=== PATIENT | female | born 1975 | race African-American/Black ===

== ENCOUNTER 2020-01-17 11:33 | Emergency (ER) | payer OTHER, SELFPAY ==
--- NOTE | ~2020-01-17 | CT_ITS ---
EXAMINATION: CTA brain carotid DATE: 01/17/2020 12:27 INDICATION: Dizziness. TECHNIQUE: Computed tomographic angiography (CTA) of the head was performed without and with 100 mL O mnipaque-350 intravenous contrast. CTA of the neck was performed with intravenous contrast. Automated exposure control and iterative reconstruction technique were employed. The dose-length product was 1 582.35 mGy-cm. Maximum intensity projection and volume rendered 3D-reconstructions were created by tiffanie nina technologist on a separate workstation. COMPARISON: None. FINDINGS: HEAD CTA: There is no intracranial hemorrhage, acute infarction, or abnormal intracranial mass lesion . The ventricles are normal in size. The orbits are normal. The paranasal sinuses are clear. The mast oid air cells are normal. The vertebral arteries are codominant. There is no significant stenosis of basilar artery or the posterior cerebral arteries. The posterior communicating arteries are normal. T here is no significant stenosis of the intracranial internal carotid arteries or anterior or middle c erebral arteries. Anterior communicating artery is normal. There is no aneurysm. NECK CTA: There are nodules in the thyroid measuring up to 10 mm, likely not clinically significant. There are no pathologically enlarged lymph nodes. There is no visible plaque in the proximal internal carotid arteries. There is 0% stenosis of the proximal right internal carotid artery relative to nor mal distal artery lumen diameter (NASCET criteria). There is 0% stenosis of the proximal left interna l carotid artery relative to normal distal artery lumen diameter. There is no significant stenosis of the vertebral arteries. There is mild cervical spondylosis. IMPRESSION: 1. Normal brain. No aneurysm or significant intracranial internal stenosis. 2. Normal neck arteries. Reviewed, dictated and finalized at location A. MIXER
[2020-01-17 11:35] VITALS: BP 119/84; PULSE 77; RESP 16; TEMP 36.2; O2SAT 100
[2020-01-17 11:45] VITALS: BP 121/86; PULSE 69; RESP 16; O2SAT 98
--- NOTE | 2020-01-17 11:45 | ECG_ITS ---
Measurements Intervals Foster Rate: 69 P: 67 HI: 164 QRS: 20 QRSD: 85 T: 28 QT: 400 QTc: 430 Interpretive Statements SINUS RHYTHM NONSPECIFIC T-WAVE ABNORMALITY- DIFFUSE LEADS BORDERLINE ECG Electronically Signed On 01-17-2020 12:39:53 [employer] by Chris Ochoa D.O.
--- NOTE | 2020-01-17 11:55 | ED.DIZZY ---
HPI - Dizziness General Chief Complaint: Dizziness Stated Complaint: dizzy Time Seen by Provider: 01/17/20 11:53 Source: patient and RN notes reviewed Mode of arrival: other Limitations: no limitations History of Present Illness HPI Narrative: Pt is a 45 y/o female who presents to the ED with c/o moderate dizziness that began at 6:20 AM. Pt describes her dizziness as if the room is spinning. Pt states her sx are alleviated whenever she lays down, but her sx are aggravated when she turns her head. Pt reports neck pain, nausea, and diarrhea, but denies vomiting, ABD pain, CP, SOB, weakness, numbness, and difficulty talking. MD elicited complaint: dizziness Onset (ago): hour(s) (5) Timing: constant Severity: moderate Description: room spinning Exacerbating factors: movement/ambulation Relieving factors: lying down Associated symptoms: nausea and other (diarrhea, neck pain) Related Data Allergies Allergy/AdvReac Type Severity Reaction Status Date / Time No Known Allergies Allergy Unverified 07/06/19 07:38 Review of Systems Review of Systems: All systems reviewed & are unremarkable except as noted in HPI and below Cardiovascular: Cardiovascular: Denies chest pain Respiratory: Respiratory: Denies dyspnea Gastrointestinal: Gastrointestinal: Denies abdominal pain, Reports diarrhea, Reports nausea and Denies vomiting Musculoskeletal: Musculoskeletal: Reports neck pain Neurologic: Reports dizziness, Denies numbness, Denies weakness and Denies other (difficulty speaking) [facility] Past Medical History Medical History (Updated 01/18/20 @ 00:00 by Abel Pardo) Cervical dysplasia Depression Surgical History Surgical History (Updated 01/17/20 @ 12:04 by Chen Castellanos) History of tubal ligation Exam Const: General: no acute distress and well developed Orientation/consciousness: oriented to person, oriented to place, oriented to time and patient oriented x3 HENMT: Head: normocephalic Ears: external ears normal General nose exam: Normal external nose present Eyes: General: appearance normal, both eyes and all related structures Conjunctivae: conjunctivae normal Neck: Neck: normal visual inspection and full ROM Chest: Chest palpation & inspection: normal inspection of the chest and no tenderness Resp: Effort & Inspection: normal respiratory effort Auscultation: clear to auscultation bilaterally Cardio: Rate: regular rate Rhythm: regular rhythm GI: GI Palp: No abdominal tenderness and Yes Soft to palpation Skin: General skin exam: normal color and turgor normal Neuro: General: oriented to person, oriented to place, oriented to time and patient oriented x3 Cranial nerves: Yes CN's II-XII intact bilaterally Cognition (Neuro): normal cognition Speech: normal speech Motor exam (neuro): 5/5 motor strength present throughout Sensory Exam: normal sensation Coordination: [id number] test normal and [id number] test normal Extrem: General: normal to inspection, full ROM and no pedal edema Psych: Appearance: grossly normal Mental Status: mental status grossly normal Affect: normal affect Course Reevaluation(s) Reevaluation #1: Pt states dizziness has resolved. Plan on d/c pt home. Date: 01/17/20 Time: 13:17 Vital Signs Vital signs: Vital Signs Temperature 36.2 C L 01/17/20 11:35 Pulse Rate 77 01/17/20 11:35 Respiratory Rate 16 01/17/20 11:35 Blood Pressure 119/84 01/17/20 11:35 Pulse Oximetry 100 01/17/20 11:35 Temperature 36.2 C L 01/17/20 11:35 Pulse Rate 64 01/17/20 13:32 Respiratory Rate 17 01/17/20 13:32 Blood Pressure 109/72 01/17/20 13:32 Pulse Oximetry 100 01/17/20 13:32 MDM - Dizziness Lab Data Result diagrams: 01/17/20 12:06 01/17/20 12:15 Labs: Lab Results 01/17/20 01/17/20 01/17/20 Range/Units 12:06 12:06 12:15 WBC 4.8 (4.5-10.0) K/mm3 RBC 4.30 (4.2-5.4) M/mm3 Hgb 10.4 L (12.0-15.0) g/
[2020-01-17 12:11] LABS: Basophils Percent Auto 0.4 % (0.2-1.2); Eosinophils Percent Auto 0.8 % (0-4.4); Hematocrit 33.8 % (37.0-47.0); Hemoglobin 10.4 g/dL (12.0-15.0); Immature Granulocyte Absolute 0.01 K/mm3 (0.00-0.031); Immature Granulocyte Percent A 0.2 % (0-0.5); Lymphocytes Absolute Auto 1.71 K/mm3 (0.9-3.2); Lymphocytes Percent Auto 35.8 % (18.3-44.2); Mean Corpuscular HGB Conc 30.8 g/dl (32-36); Mean Corpuscular Hemoglobin 24.2 pg (26-34); Mean Corpuscular Volume 78.6 fl (80-100); Monocytes Absolute Auto 0.3 K/mm3 (0.1-0.6); Monocytes Percent Auto 6.9 % (2.6-8.5); Neutrophils Absolute Auto 2.7 K/mm3 (1.3-6.7); Neutrophils Percent Auto 55.9 % (45.5-73.1); Platelet Count Result 318 k/mm3 (150-375); Red Cell Distribution Width 15.2 % (11.5-14.5); White Blood Count 4.8 K/mm3 (4.5-10.0)
[2020-01-17 12:17] LABS: Blood Urea Nitrogen 12 mg/dL (8-26); Estimated CRCL calculation 82 ml/min; Estimated Glomerular Filt Rate > 60
[2020-01-17 12:32] LABS: Blood Urea Nitrogen 12 mg/dL (7-17); Calcium 9.2 mg/dL (8.4-10.2); Carbon Dioxide 27 mmol/L (22-30); Chloride 103 mmol/L (98-107); Estimated CRCL calculation 93 ml/min; Estimated Glomerular Filt Rate > 60; Glucose 106 mg/dL (65-105); Potassium 4.2 mmol/L (3.4-5.0); Sodium 137 mmol/L (137-145)
[2020-01-17] MEDS: SODIUM CHLORIDE 0.9% IV 1,000 ML 999 ML IV CONT (12:36)
[2020-01-17] MEDS: ONDANSETRON INJ 4 MG/2 ML VIAL IV PUSH (12:36)
[2020-01-17 12:37] VITALS: BP 108/73; BP 119/71; BP 126/73; PULSE 67; PULSE 69; PULSE 73
[2020-01-17 12:38] VITALS: BP 112/73; PULSE 71; RESP 13; O2SAT 100
[2020-01-17] MEDS: MECLIZINE HCL 25 MG TABLET PO (12:43)
[2020-01-17 13:32] VITALS: BP 109/72; PULSE 64; RESP 17; O2SAT 100
--- NOTE | 2020-01-21 18:24 | PC.NURSE ---
LATE ENTRY This note is being entered to document information to the patient's record. The following information was omitted on 01/17/2020, by Candelaria Eid RN. NS stopped at 1259 by this RN
== END 2020-01-17 13:33 | disposition home or self-care (01) ==
PROVIDERS: Emergency Medicine; Emergency Provider Emergency Medicine; PCP Emergency Medicine
DX: R42 Dizziness and giddiness (principal); R94.31 Abnormal electrocardiogram [ECG] [EKG]
CPT/HCPCS: 36415; 70496; 70498; 80048; 85025; 93005; 96374; 99284; A9270; J2405; J7030; Q9967

== ENCOUNTER 2020-01-30 10:41 | Outpatient (CLI) | payer OTHER, SELFPAY ==
--- NOTE | ~2020-01-30 | US_ITS ---
US thyroid INDICATION: Thyroid nodule TECHNIQUE: Real-time sonographic images of the thyroid gland were obtained. COMPARISON: No prior studies for comparison. FINDINGS: The right thyroid lobe measures 5.5 x 2.2 x 2.1 cm. The left thyroid lobe measures 4.9 x 2 .1 x 2.3 cm. There is heterogeneous thyroid echotexture. There are multiple bilateral thyroid masses in both lobes. In the right lobe there is a solid oval hypoechoic solid mass which is wider than tall with slightly irregular margins and no definite internal calcifications. This mass measures 1.5 x 0. 9 x 0.8 cm. Largest in the left lobe measures 1.6 x 1.4 x 1.3 cm this mass is mixed solid and cystic, predominantly hyperechoic with irregular margins. IMPRESSION: 1. Abnormal bilateral thyroid masses which are both category TR4. Ultrasound-guided biopsy recommend ed for each of these. Reviewed, dictated and finalized at location B. EOTYPER HELPER IMPRESSION: 1. Abnormal bilateral thyroid masses which are both category TR4. Ultrasound-g uided biopsy recommended for each of these.
== END 2020-01-30 10:42 | disposition home or self-care (01) ==
PROVIDERS: PCP Emergency Medicine; Visit Provider Emergency Medicine
DX: E04.1 Nontoxic single thyroid nodule (principal)
CPT/HCPCS: 76536

== ENCOUNTER 2022-05-20 12:31 | Emergency (ER) | payer OTHER, SELFPAY ==
--- NOTE | ~2022-05-20 | XR_ITS ---
EXAMINATION: XR lumbar spine 2-3V DATE: 05/20/2022 13:48 INDICATION: Low back pain TECHNIQUE: Anteroposterior and lateral views of the lumbar spine, and cone-down lateral view of the l umbosacral junction were obtained. COMPARISON: CT, 11/15/2011 FINDINGS: Bone alignment is normal. There is no fracture. There is mild loss of intervertebral disc s pace height at L3-4 and L5-S1. The vertebral body heights are maintained. There is mild facet osteoar thritis of the lower lumbar spine. Small degenerative osteophytes project from the anterior endplates of multiple vertebral bodies. The bowel gas pattern is normal. IMPRESSION: 1. Mild lumbar spondylosis without acute findings. Reviewed, dictated and finalized at location F.
[2022-05-20 13:07] VITALS: BP 124/76; PULSE 82; RESP 18; TEMP 36.2; O2SAT 100
[2022-05-20] MEDS: diazePAM (*CRX) 2 MG TABLET PO (13:49)
[2022-05-20] MEDS: KETOROLAC (*BKC) 60 MG/2 ML VIAL IM (13:49)
[2022-05-20 14:03] LABS: Add Urine Microscopic? YES; Appearance Urine Clear (Clear); Bilirubin Urine 1+ (Negative); Blood Urine Negative (Negative); Color Urine Yellow (Yellow); Glucose Urine UA Negative (Negative); Ketones Urine Trace mg/dL (Negative); Leukocyte Esterase Ur Negative LEU/UL (Negative); Nitrate Urine Negative (Negative); Protein Urine Trace mg/dL (Negative); Specific Grav Ur >= 1.030 (1.001-1.035); pH Urine 5.5 (5.0-9.0)
[2022-05-20 14:08] LABS: Bacteria Urine Trace /hpf; Mucus Urine Few /lpf; RBC Urine 0-2 /hpf (0-2); Squamous Epithelial Cell Urine Occasional /hpf (Few); WBC Urine 0-3 /hpf
--- NOTE | 2022-05-20 15:37 | ED.BACK ---
HPI - Back Pain/Injury General Chief Complaint: Back Pain/Injury Stated Complaint: back pain Time Seen by Provider: 05/20/22 13:23 History of Present Illness HPI Narrative: Patient is a 47-year-old female who presents ER with low back pain. Right-sided. Worsening over the last 2 days. No improvement with naproxen. No fevers or chills or sweats. No known trauma. She did not fall and she has not been doing any heavy lifting. No history of chronic back discomfort. She reports the pain occasionally goes down her right leg. No saddle anesthesia or difficulty with urination/defecation. No focal weakness of the lower extremity. Related Data Allergies Allergy/AdvReac Type Severity Reaction Status Date / Time No Known Allergies Allergy Verified 05/20/22 13:21 Review of Systems Review of Systems: All systems reviewed & are unremarkable except as noted in HPI and below Constitutional: Constitutional: Denies chills, Denies fatigue and Denies fever(s) Gastrointestinal: Gastrointestinal: Denies abdominal pain, Denies nausea and Denies vomiting Genitourinary: Genitourinary: Denies nocturia, Denies dysuria and Denies flank pain Musculoskeletal: Musculoskeletal: Reports back pain, Denies arthralgias and Denies joint swelling PMFSH Past Medical History Medical History (Updated 05/20/22 @ 15:38 by Kemar Patel MD) Cervical dysplasia Depression Surgical History Surgical History (Updated 01/17/20 @ 12:04 by Chen Castellanos) History of tubal ligation Exam Narrative: GENERAL: Well-appearing, well-nourished, and in no acute distress. HEAD: Normocephalic, atraumatic. CHEST: Clear to auscultation. No respiratory distress. HEART: Regular rate and rhythm. Normal peripheral pulses. ABDOMEN: Soft, nontender, nondistended. Back: Mild low midline tenderness but significantly increased tenderness to the right paraspinal musculature in the lumbar region. Muscles tight and spasm. EXTREMITIES: Normal range of motion. No edema. SKIN: Warm, dry, no rash. NEURO: Alert and oriented x3. PSYCH: Normal mood and affect. Course Course Emergency Course: Patient feels improved with Toradol and Valium. Discussed conservative outpatient treatment and patient verbalized understanding. Vital Signs Vital signs: Vital Signs Temperature 97.2 F L 05/20/22 13:07 Pulse Rate 82 06/23/22 13:07 Respiratory Rate 18 05/20/22 13:07 Blood Pressure 124/76 05/20/22 13:07 Pulse Oximetry 100 05/20/22 13:07 Oxygen Delivery Room Air 05/20/22 13:07 Temperature 97.2 F L 05/20/22 13:07 Pulse Rate 82 05/20/22 13:07 Respiratory Rate 18 05/20/22 13:07 Blood Pressure 124/76 05/20/22 13:07 Pulse Oximetry 100 05/20/22 13:07 Oxygen Delivery Room Air 05/20/22 13:07 MDM - Back Pain/Injury Lab Data Labs: Lab Results 05/20/22 Range/Units 13:56 Urine Color Yellow (Yellow) Urine Appearance Clear (Clear) Urine pH 5.5 (5.0-9.0) Ur Specific [place] >= 1.030 (1.001-1.035) Urine Protein Trace (Negative) mg/dL Urine Glucose (UA) Negative (Negative) mg/dL Urine Ketones Trace (Negative) mg/dL Ur Blood (Man) Negative (Negative) Urine Nitrate Negative (Negative) Urine Bilirubin 1+ H (Negative) Urine Urobilinogen 1.0 (<2.0) mg/dL Leukocyte Esterase Rfl Negative (Negative) RADHA/UL Urine RBC 0-2 (0-2) /hpf Urine WBC 0-3 /hpf Ur Squamous Epith Cells Occasional (Few) /hpf Urine Bacteria Trace /hpf Urine Mucus Few H /lpf Imaging Data Radiologist's impression: ITS Impressions Lumbar Spine X-Ray 05/20/22 13:53 IMPRESSION: 1. Mild lumbar spondylosis without acute findings. Discharge Plan Discharge Clinical Impression: Sciatica Patient Disposition: Home, Self-Care Condition: Stable Instructions: Sciatica (ED) Additional Instructions: Return to the ER if you have increased pain in your back, you develop lower extremity we
[2022-05-20 15:56] VITALS: BP 107/72; PULSE 73; RESP 16; TEMP 36.6; O2SAT 100
== END 2022-05-20 15:56 | disposition home or self-care (01) ==
PROVIDERS: Emergency Provider Emergency Medicine; PCP Emergency Medicine
DX: M54.41 Lumbago with sciatica, right side (principal); M47.816 Spondylosis without myelopathy or radiculopathy, lumbar region
CPT/HCPCS: 72100; 81001; 96372; 99283; A9270; J1885

== ENCOUNTER 2022-09-19 08:22 | Emergency (ER) | payer OTHER, SELFPAY ==
[2022-09-19] VITALS (7 sets, daily range): BP systolic 117–133; BP diastolic 73–92; PULSE 74–100; RESP 16–18; TEMP 36.6; O2SAT 100
--- NOTE | ~2022-09-19 | CT_ITS ---
EXAMINATION: CTA brain carotid DATE: 09/19/2022 15:30 INDICATION: Headache, family history of aneurysm TECHNIQUE: Computed tomographic angiography (CTA) of the head was performed without and with 100 mL O mnipaque-350 intravenous contrast. CTA of the neck was performed with intravenous contrast. The dose- length product was 1702.06 mGy-cm. Maximum intensity projection and volume rendered 3D-reconstruction s were created by the technologist on a separate workstation. Automated exposure control and iterativ e reconstruction technique were employed. COMPARISON: 01/17/2020 FINDINGS: HEAD CTA: There is no intracranial hemorrhage, acute infarction, or abnormal mass lesion. The ventric les are normal. There is no abnormal mass effect or midline shift. The leonard-white matter differentiat ion is normal. The basal cisterns are patent. The orbits are normal. There is mild mucosal thickening of the paranasal sinuses. There is no significant stenosis of the basilar artery or posterior cerebral arteries. There is no si gnificant stenosis of the intracranial internal carotid arteries or the anterior or middle cerebral a rteries. The anterior communicating artery and posterior communicating arteries are normal. There is no aneurysm. NECK CTA: Thyroid nodules are again noted which measure up to 10 mm. The submandibular and parotid gl ands are symmetric. There is no lymphadenopathy. There are no masses identified. The airway is unrema rkable. There are no osseous abnormalities. The superior mediastinum is unremarkable. There is 0% stenosis of the proximal right internal carotid artery relative to normal distal artery l umen diameter (NASCET criteria). There is 0% stenosis of the proximal left internal carotid artery re lative to normal distal artery lumen diameter. IMPRESSION: 1. No acute intracranial abnormality. Normal head CTA. 2. 0% stenosis of the proximal right internal carotid artery relative to normal distal artery lumen d iameter (NASCET criteria). 3. 0% stenosis of the proximal left internal carotid artery relative to normal distal artery lumen di ameter. Reviewed, dictated and finalized at location F. IMPRESSION: 1. No acute intracranial abnormality. Normal head CTA. 2. 0% stenosis of the proximal right internal carotid artery relative to normal distal artery lumen diameter (NASCET criteria). 3. 0% stenosis of the proximal left internal carotid artery relative to normal distal artery lumen diameter.
--- NOTE | 2022-09-19 12:56 | ED.URI ---
HPI - URI/Sore Throat General Chief Complaint: Upper Respiratory Infection Stated Complaint: URI, ARZOLA, UTI? Time Seen by Provider: 09/19/22 12:13 History of Present Illness HPI Narrative: Patient states the last few days she has been dealing with congestion, nausea, body aches, and a feeling of a pressure in her head and behind her eyes also endorsing some chills and burning with urination that started 2 days ago. No focal numbness or weakness anywhere, she is worried about having an aneurysm Related Data Allergies Allergy/AdvReac Type Severity Reaction Status Date / Time No Known Allergies Allergy Verified 09/19/22 08:39 Review of Systems Review of Systems: CONST: Chills HEENT: Congestion C/V: No chest pain RESP: No cough GI: Nausea : Dysuria. M/S: Body aches SKIN: No rash. NEURO: Headache without any focal numbness or weakness PSYCH: [No depression] PMFSH Past Medical History Medical History Cervical dysplasia Depression Surgical History Surgical History History of tubal ligation Exam Narrative: EXAMINATION OF ORGAN SYSTEMS/BODY AREAS: Constitutional: Vital signs per nursing GENERAL:[No acute distress, non-toxic appearing.] HEAD: Normal with no signs of head trauma. EYES: EOMI, conjunctiva normal, PERRL ENT: Hearing grossly intact, nasal congestion, normal voice LUNGS: Nonlabored breathing. HEART: [Regular rate and rhythm] ABD: [Soft], [nontender to palpation] EXT: Normal range of motion SKIN: [No rashes or lesions.] NEURO: [Alert and oriented x 3. No gross focal sensory or strength deficits. CN 2-12 intact. Symmetric face] PSYCH: Normal affect Course Vital Signs Vital signs: Vital Signs Temperature 97.9 F 09/19/22 08:30 Pulse Rate 100 09/19/22 08:30 Respiratory Rate 18 09/19/22 08:30 Blood Pressure 133/73 09/19/22 08:30 Pulse Oximetry 100 09/19/22 08:30 Oxygen Delivery Room Air 09/19/22 08:30 Temperature 97.9 F 09/19/22 08:30 Pulse Rate 78 09/19/22 14:46 Respiratory Rate 16 09/19/22 14:46 Blood Pressure 117/85 09/19/22 14:46 Pulse Oximetry 100 09/19/22 14:46 Oxygen Delivery Room Air 09/19/22 08:36 MDM - URI/Sore Throat MDM Narrative Medical decision making narrative: 47-year-old female presents to the emergency department for headache and dysuria. Patient is hemodynamically stable. No focal neurological or cranial nerve deficits on exam. No meningeal signs. The headache was gradual in onset, it is not exertional and does not appear consistent with subarachnoid hemorrhage or intracranial bleeding. No trauma. Patient is given headache cocktail including Reglan, Benadryl, Toradol. On reevaluation, the patient feels significantly better but still has a mild headache, and she would like to be checked to make sure she does not have an aneurysm as she has a family history of this, I did therefore obtain imaging which is negative. Labs are notable for UTI, which she is treated with antibiotics here and a prescription provided to go home. No neurological deficits. Patient is comfortable going home for outpatient follow-up with primary care physician and provided with strict return precautions, especially for worsening headaches, neck pain/stiffness, fever or weakness, numbness/tingling or persistent vomiting. I suspect most likely symptoms are from viral illness. Pulse oximetry interpretation: Not hypoxic. DISPOSITION: Discharged home in stable condition. Lab Data Result diagrams: 09/19/22 12:59 09/19/22 12:59 Labs: Lab Results 09/19/22 09/19/22 09/19/22 Range/Units 12:59 12:59 12:59 WBC 7.3 (4.5-10.0) K/mm3 RBC 4.17 L (4.2-5.4) M/mm3 Hgb 10.3 L (12.0-15.0) g/dL Hct 33.1 L (37.0-47.0) % MCV 79.4 L (80-100) fl MCH 24.7 L (26-34) pg MCHC 31.1 L (32-36) g/dl RDW 16.3 H (11.5-14.5
[2022-09-19] MEDS: METOCLOPRAMIDE HCL INJ 10 MG/2 ML VIAL IV PUSH (13:01)
[2022-09-19] MEDS: diphenhydrAMINE HCl INJ 50 MG/ML VIAL 25 MG IV PUSH (13:01)
[2022-09-19 13:06] LABS: Basophils Percent Auto 0.6 % (0.2-1.2); Eosinophils Absolute Auto 0.1 K/mm3 (0-0.3); Hematocrit 33.1 % (37.0-47.0); Hemoglobin 10.3 g/dL (12.0-15.0); Immature Granulocyte Absolute 0.02 K/mm3 (0.00-0.031); Immature Granulocyte Percent A 0.3 % (0-0.5); Lymphocytes Absolute Auto 1.81 K/mm3 (0.9-3.2); Lymphocytes Percent Auto 24.9 % (18.3-44.2); Mean Corpuscular HGB Conc 31.1 g/dl (32-36); Mean Corpuscular Hemoglobin 24.7 pg (26-34); Mean Corpuscular Volume 79.4 fl (80-100); Mean Platelet Volume 9.4 fl (7.4-10.4); Monocytes Absolute Auto 0.7 K/mm3 (0.1-0.6); Monocytes Percent Auto 9.6 % (2.6-8.5); Neutrophils Absolute Auto 4.6 K/mm3 (1.3-6.7); Neutrophils Percent Auto 63.6 % (45.5-73.1); Platelet Count Result 356 k/mm3 (150-375); Red Blood Count 4.17 M/mm3 (4.2-5.4); Red Cell Distribution Width 16.3 % (11.5-14.5); White Blood Count 7.3 K/mm3 (4.5-10.0)
[2022-09-19 13:18] LABS: Add Urine Microscopic? YES; Anion Gap 10 mmol/L (8-16); Appearance Urine Cloudy (Clear); Bilirubin Urine Negative (Negative); Blood Urea Nitrogen 10 mg/dL (7-17); Blood Urine Negative (Negative); Calcium 9.1 mg/dL (8.4-10.2); Carbon Dioxide 25 mmol/L (22-30); Chloride 100 mmol/L (98-107); Color Urine Yellow (Yellow); Estimated CRCL calculation 73 ml/min; Estimated Glomerular Filt Rate > 60; Glucose 101 mg/dL (65-110); Glucose Urine UA Negative (Negative); Ketones Urine Negative (Negative); Leukocyte Esterase Ur Negative LEU/UL (Negative); Mucus Urine Rare /lpf; Nitrate Urine Positive (Negative); Potassium 3.8 mmol/L (3.4-5.0); Protein Urine Negative (Negative); Sodium 135 mmol/L (137-145); Specific Grav Ur 1.018 (1.001-1.035); Squamous Epithelial Cell Urine Many /hpf (Few); Urobilinogen Urine Negative mg/dL (<2.0); WBC Urine 16-20 /hpf
[2022-09-19 13:43] LABS: Influenza A QL RT-PCR Negative (Negative); Influenza B QL RT-PCR Negative (Negative); SARS-CoV-2 RNA PCR Negative
[2022-09-19] MEDS: cefTRIAXone 2 GM in SODIUM CHLORIDE 0.9% IV 100 ML 200 ML IVPB (14:32)
== END 2022-09-19 16:02 | disposition home or self-care (01) ==
PROVIDERS: Emergency Provider Emergency Medicine; PCP Emergency Medicine
DX: N39.0 Urinary tract infection, site not specified (principal); J06.9 Acute upper respiratory infection, unspecified; Z20.822 Contact with and (suspected) exposure to COVID-19
CPT/HCPCS: 36415; 70496; 70498; 80048; 81001; 81025; 85025; 87077; 87086; 87186; 87502; 96365; 96366; 96375; 99284; C9803; J0696; J1200; J2765; Q9967; U0003; U0005

== ENCOUNTER 2022-09-21 14:39 | Outpatient (CLI) | payer OTHER, SELFPAY ==
--- NOTE | ~2022-09-21 | XR_ITS ---
XR_CERV2-3V_CR DATE: 09/21/2022 15:09 INDICATION: Left neck and arm pain no injury. TECHNIQUE: AP, open-mouth, lateral views COMPARISON: None FINDINGS: There is straightening of the cervical spine which may be due to muscle spasm. C1 and C2 are normally aligned and the odontoid process is intact. No fracture or dislocation, locked facet or prevertebral soft tissue swelling. Cervical interspaces are well preserved. IMPRESSION: Straightening Reviewed, dictated and finalized at Location A. Reviewed, dictated and finalized at location A. IMPRESSION: Straightening
[2022-09-21 15:30] LABS: Hematocrit 33.8 % (37.0-47.0); Hemoglobin 10.4 g/dL (12.0-15.0); Mean Corpuscular HGB Conc 30.8 g/dl (32-36); Mean Corpuscular Hemoglobin 24.3 pg (26-34); Mean Platelet Volume 9.7 fl (7.4-10.4); Platelet Count Result 373 k/mm3 (150-375); Red Blood Count 4.28 M/mm3 (4.2-5.4); Red Cell Distribution Width 16.1 % (11.5-14.5); White Blood Count 4.6 K/mm3 (4.5-10.0)
[2022-09-21 16:50] LABS: Alanine Aminotransferase 15 U/L (6-35); Albumin Level 4.5 g/dL (3.5-5.1); Alkaline Phosphatase 62 U/L (38-126); Anion Gap 12 mmol/L (8-16); Aspartate Amino Transferase 24 U/L (14-36); Bilirubin,Total 0.3 mg/dL (0.2-1.3); Blood Urea Nitrogen 12 mg/dL (7-17); Calcium 8.9 mg/dL (8.4-10.2); Carbon Dioxide 23 mmol/L (22-30); Chloride 100 mmol/L (98-107); Cholesterol 225 mg/dL (0-200); Estimated Glomerular Filt Rate 58; Glucose 101 mg/dL (65-110); HDL Direct 59 mg/dL; Sodium 135 mmol/L (137-145); Triglycerides 88 mg/dL (<150)
[2022-09-21 17:02] LABS: LDL Cholesterol Direct 97 mg/dL
[2022-09-21 17:06] LABS: Iron 26 ug/dL (37-170)
[2022-09-21 17:15] LABS: Percent Iron Saturation 7 % (20-50)
[2022-09-21 17:26] LABS: Free T4 Free Thyroxine 1.23 ng/mL (0.78-2.19); Vitamin D 25 Hydroxy 18.6 ng/mL
[2022-09-21 18:19] LABS: Microalbumin Urine Random 49.5 mg/L (0-16.7)
[2022-09-21 18:40] LABS: Creatinine Urine 377.1 mg/dL; MALB Creatinine Ratio 13.1 mg/g (0-30)
[2022-09-21 20:09] LABS: Hemoglobin A1C 5.9 % (<5.7)
== END 2022-09-21 14:40 | disposition home or self-care (01) ==
PROVIDERS: PCP Emergency Medicine; Visit Provider Emergency Medicine
DX: N39.0 Urinary tract infection, site not specified (principal); D64.9 Anemia, unspecified; R42 Dizziness and giddiness; E07.9 Disorder of thyroid, unspecified; D34 Benign neoplasm of thyroid gland
CPT/HCPCS: 36415; 72040; 80053; 80061; 82043; 82306; 83036; 83540; 83550; 84439; 84443; 85027; 87086

== ENCOUNTER 2022-09-23 12:59 | Outpatient (CLI) | payer OTHER, SELFPAY ==
--- NOTE | ~2022-09-23 | US_ITS ---
EXAMINATION: US thyroid DATE: 09/23/2022 14:03 INDICATION: Benign thyroid nodule. TECHNIQUE: Multiple ultrasound images of the thyroid were obtained. COMPARISON: Thyroid ultrasound 01/30/2020, 12/26/2017 FINDINGS: The right thyroid lobe measures 5.8 x 2.2 x 2.7 cm. The left thyroid lobe measures 5.1 x 2.0 x 2.6 c m. In the right thyroid lobe, there is a 14 mm predominantly solid, hypoechoic, wider than tall nodu le with lobulated margin without echogenic foci (TI-RADS TR4), stable from 10/26/18. In the right thy roid lobe, there is an 11 mm predominantly cystic nodule (TR1). In the right thyroid lobe, there is a n 11 mm solid, hypoechoic, wider than tall nodule with lobulated margin without echogenic foci (TR4), stable from 10/26/18. In the left thyroid lobe, there is a 16 mm solid, hypoechoic, wider than tall nodule with lobulated margin without echogenic foci (TR4), stable from 10/26/18. In the left thyroid lobe, there is a 13 mm solid, hypoechoic, wider than tall nodule with smooth margin without echogenic foci (TR4), increased from 9 mm on 10/26/18. In the left thyroid lobe, there is a 16 mm predominance solid, hypoechoic, wider than tall nodule with ill-defined margin without echogenic foci (TR4), stab le from 10/26/18. There are multiple subcentimeter nodules in the thyroid. IMPRESSION: 1. Multinodular goiter. Consider thyroid ultrasound in 1-2 years. Reviewed, dictated and finalized at location A.
== END 2022-09-23 13:00 | disposition home or self-care (01) ==
LOC: ANHIMG 13:01
PROVIDERS: PCP Emergency Medicine; Visit Provider Emergency Medicine
DX: M54.2 Cervicalgia (principal); E04.2 Nontoxic multinodular goiter
CPT/HCPCS: 76536

== ENCOUNTER 2022-09-28 21:17 | Emergency (ER) | payer OTHER, SELFPAY ==
[2022-09-28 21:22] VITALS: BP 116/75; PULSE 96; RESP 20; TEMP 36.6; O2SAT 100
[2022-09-28 21:43] LABS: Basophils Absolute Auto 0.1 K/mm3 (0.0-0.1); Basophils Percent Auto 0.7 % (0.2-1.2); Eosinophils Absolute Auto 0.1 K/mm3 (0-0.3); Eosinophils Percent Auto 1.3 % (0-4.4); Hematocrit 33.9 % (37.0-47.0); Hemoglobin 10.3 g/dL (12.0-15.0); Immature Granulocyte Absolute 0.01 K/mm3 (0.00-0.031); Immature Granulocyte Percent A 0.1 % (0-0.5); Lymphocytes Absolute Auto 2.97 K/mm3 (0.9-3.2); Lymphocytes Percent Auto 41.4 % (18.3-44.2); Mean Corpuscular HGB Conc 30.4 g/dl (32-36); Mean Corpuscular Hemoglobin 24.2 pg (26-34); Mean Corpuscular Volume 79.6 fl (80-100); Mean Platelet Volume 9.2 fl (7.4-10.4); Monocytes Absolute Auto 0.5 K/mm3 (0.1-0.6); Neutrophils Absolute Auto 3.6 K/mm3 (1.3-6.7); Neutrophils Percent Auto 49.5 % (45.5-73.1); Platelet Count Result 430 k/mm3 (150-375); Red Blood Count 4.26 M/mm3 (4.2-5.4); Red Cell Distribution Width 15.7 % (11.5-14.5); White Blood Count 7.2 K/mm3 (4.5-10.0)
[2022-09-28 21:45] LABS: Appearance Urine Clear (Clear); Bilirubin Urine 1+ (Negative); Blood Urine Negative (Negative); Color Urine Yellow (Yellow); Glucose Urine UA Negative (Negative); Ketones Urine 1+ mg/dL (Negative); Leukocyte Esterase Ur Negative LEU/UL (Negative); Nitrate Urine Negative (Negative); Protein Urine 1+ mg/dL (Negative); Specific Grav Ur 1.025 (1.001-1.035); Urobilinogen Urine 0.2 mg/dL (<2.0); pH Urine 6.5 (5.0-9.0)
[2022-09-28 21:50] LABS: Mucus Urine Heavy /lpf; RBC Urine 0-2 /hpf (0-2); Squamous Epithelial Cell Urine Moderate /hpf (Few); WBC Urine 0-3 /hpf
[2022-09-28 21:52] LABS: Add Urine Microscopic? YES
[2022-09-28 21:56] LABS: Alanine Aminotransferase 17 U/L (6-35); Albumin Level 4.5 g/dL (3.5-5.1); Alkaline Phosphatase 52 U/L (38-126); Anion Gap 10 mmol/L (8-16); Aspartate Amino Transferase 24 U/L (14-36); Bilirubin,Total 0.3 mg/dL (0.2-1.3); Blood Urea Nitrogen 14 mg/dL (7-17); Calcium 8.7 mg/dL (8.4-10.2); Carbon Dioxide 27 mmol/L (22-30); Chloride 102 mmol/L (98-107); Estimated CRCL calculation 62 ml/min; Estimated Glomerular Filt Rate > 60; Glucose 91 mg/dL (65-110); Sodium 139 mmol/L (137-145)
[2022-09-29 00:37] VITALS: BP 117/79; PULSE 82; RESP 18; TEMP 36.6; O2SAT 100
[2022-09-29] MEDS: SODIUM CHLORIDE 0.9% IV 1,000 ML 999 ML IV CONT (00:59)
[2022-09-29] MEDS: KETOROLAC 30 MG/ML VIAL (*BKC) IV PUSH (01:00)
--- NOTE | 2022-09-29 02:56 | ED.GENADULT ---
HPI - General Adult General Chief complaint: Urogenital-Female Stated complaint: UTI with c/o bilateral mid back pain Time Seen by Provider: 09/29/22 00:35 History of Present Illness HPI narrative: Patient is a 47-year-old female who presents ER with low back pain. Ongoing for 9 days. Patient reports she was evaluated by her PCP in the ER. She ended up having E. coli that grew out in her urine. She has been on 2 different antibiotics that can make her nauseous and she quit them a couple days ago. She reports back pain persists and PCP sent her in to be evaluated further she needs IV antibiotics for pyelonephritis. She is having no fevers or chills or sweats. No urinary frequency or dysuria at this time. Patient denies any numbness or tingling legs to bone. No incontinence. Related Data Allergies Allergy/AdvReac Type Severity Reaction Status Date / Time No Known Allergies Allergy Verified 09/29/22 00:44 Review of Systems Review of Systems: All systems reviewed & are unremarkable except as noted in HPI and below Constitutional: Constitutional: Denies chills and Denies fever(s) Cardiovascular: Cardiovascular: Denies chest pain and Denies rapid heart rate Respiratory: Respiratory: Denies cough, Denies dyspnea and Denies wheezing Gastrointestinal: Gastrointestinal: Denies abdominal pain, Reports nausea and Denies vomiting Genitourinary: Genitourinary: Denies nocturia, Denies dysuria and Reports flank pain Musculoskeletal: Musculoskeletal: Reports back pain and Denies arthralgias Neurologic: Denies focal weakness and Denies numbness PMFSH Past Medical History Medical History Cervical dysplasia Depression Surgical History Surgical History History of tubal ligation Exam Narrative: GENERAL: Well-appearing, well-nourished, and in no acute distress. HEAD: Normocephalic, atraumatic. CHEST: Clear to auscultation. No respiratory distress. HEART: Regular rate and rhythm. Normal peripheral pulses. ABDOMEN: Soft, nontender, nondistended. Back: Paraspinal muscular discomfort and tightness in the lumbar region bilaterally, no midline tenderness, no thoracic midline or paraspinal muscle tenderness. There is no reproducible CVA tenderness. EXTREMITIES: Normal range of motion. No edema. NEURO: Alert and oriented x3. PSYCH: Normal mood and affect. Course Course Emergency Course: Patient informed of results. I do not believe patient to have any pyelonephritis. Glucose failure and was appropriately treated. Discharged with supportive care. Vital Signs Vital signs: Vital Signs Temperature 97.9 F 09/28/22 21:22 Pulse Rate 96 09/28/22 21:22 Respiratory Rate 20 09/28/22 21:22 Blood Pressure 116/75 09/28/22 21:22 Pulse Oximetry 100 09/28/22 21:22 Oxygen Delivery Room Air 09/28/22 21:22 Temperature 97.9 F 09/29/22 00:37 Pulse Rate 82 09/29/22 00:37 Respiratory Rate 18 09/29/22 00:37 Blood Pressure 117/79 09/29/22 00:37 Pulse Oximetry 100 09/29/22 00:37 Oxygen Delivery Room Air 09/29/22 00:37 Medical Decision Making Vital Signs Vital Signs: Vital Signs Temperature 97.9 F 09/28/22 21: Pulse Rate 96 09/28/22 21:22 Respiratory Rate 20 09/28/22 21:22 Blood Pressure 116/75 09/28/22 21:22 Pulse Oximetry 100 09/28/22 21:22 Oxygen Delivery Room Air 09/28/22 21:22 Temperature 97.9 F 09/29/22 00:37 Pulse Rate 82 09/29/22 00:37 Respiratory Rate 18 09/29/22 00:37 Blood Pressure 117/79 09/29/22 00:37 Pulse Oximetry 100 09/29/22 00:37 Oxygen Delivery Room Air 09/29/22 00:37 Lab Data Result diagrams: 09/28/22 21:28 09/28/22 21:28 Labs: Lab Results 09/28/22 09/28/22 09/28/22 Range/Units 21:28 21:28 21:38 WBC 7.2 (4.5-10.0) K/mm3 RBC 4.26 (4.2-5.4) M/mm3 Hgb 10.3 L (12.0-15.0) g
[2022-09-29 03:31] VITALS: BP 127/86; PULSE 82; RESP 18; O2SAT 100
== END 2022-09-29 03:05 | disposition home or self-care (01) ==
PROVIDERS: Emergency Provider Emergency Medicine; PCP Emergency Medicine
DX: R25.2 Cramp and spasm (principal)
CPT/HCPCS: 36415; 80053; 81001; 81025; 85025; 96361; 96374; 99284; J1885; J7030

== ENCOUNTER 2023-01-24 15:54 | Outpatient (CLI) | payer OTHER, SELFPAY ==
[2023-01-24 16:09] LABS: Basophils Percent Auto 0.5 % (0.2-1.2); Eosinophils Absolute Auto 0.1 K/mm3 (0-0.3); Eosinophils Percent Auto 2.3 % (0-4.4); Hematocrit 32.5 % (37.0-47.0); Hemoglobin 10.1 g/dL (12.0-15.0); Immature Granulocyte Absolute 0.01 K/mm3 (0.00-0.031); Immature Granulocyte Percent A 0.2 % (0-0.5); Lymphocytes Absolute Auto 2.66 K/mm3 (0.9-3.2); Lymphocytes Percent Auto 47.1 % (18.3-44.2); Mean Corpuscular HGB Conc 31.1 g/dl (32-36); Mean Corpuscular Hemoglobin 24.5 pg (26-34); Mean Corpuscular Volume 78.7 fl (80-100); Mean Platelet Volume 9.4 fl (7.4-10.4); Monocytes Absolute Auto 0.4 K/mm3 (0.1-0.6); Monocytes Percent Auto 7.8 % (2.6-8.5); Neutrophils Absolute Auto 2.4 K/mm3 (1.3-6.7); Neutrophils Percent Auto 42.1 % (45.5-73.1); Platelet Count Result 339 k/mm3 (150-375); Red Blood Count 4.13 M/mm3 (4.2-5.4); Red Cell Distribution Width 15.4 % (11.5-14.5); White Blood Count 5.7 K/mm3 (4.5-10.0)
[2023-01-24 16:51] LABS: Alanine Aminotransferase 15 U/L (6-35); Albumin Level 4.4 g/dL (3.5-5.1); Alkaline Phosphatase 63 U/L (38-126); Anion Gap 5 mmol/L (8-16); Aspartate Amino Transferase 22 U/L (14-36); Bilirubin,Total 0.3 mg/dL (0.2-1.3); Blood Urea Nitrogen 9 mg/dL (7-17); Calcium 8.9 mg/dL (8.4-10.2); Carbon Dioxide 30 mmol/L (22-30); Chloride 104 mmol/L (98-107); Estimated Glomerular Filt Rate > 60; Glucose 95 mg/dL (65-110); Potassium 4.1 mmol/L (3.4-5.0); Sodium 139 mmol/L (137-145)
[2023-01-24 17:14] LABS: Iron 44 ug/dL (37-170)
[2023-01-24 17:23] LABS: Percent Iron Saturation 11 % (20-50)
[2023-01-24 17:51] LABS: Ferritin 8.18 ng/mL (6.24-137)
[2023-01-24 18:12] LABS: Folic Acid 8.7 ng/mL (2.76->20)
== END 2023-01-24 15:55 | disposition home or self-care (01) ==
LOC: ANHLAB 15:55
PROVIDERS: PCP Emergency Medicine; Visit Provider Internal Medicine Hematology & Oncology
DX: D64.9 Anemia, unspecified (principal)
CPT/HCPCS: 36415; 80053; 82607; 82728; 82746; 83540; 83550; 84443; 85025

== ENCOUNTER 2023-02-07 13:48 | Outpatient (CLI) | payer OTHER, SELFPAY ==
[2023-02-07 14:00] LABS: Basophils Percent Auto 0.7 % (0.2-1.2); Eosinophils Absolute Auto 0.2 K/mm3 (0-0.3); Eosinophils Percent Auto 2.7 % (0-4.4); Hematocrit 32.3 % (37.0-47.0); Hemoglobin 9.8 g/dL (12.0-15.0); Immature Granulocyte Absolute 0.01 K/mm3 (0.00-0.031); Immature Granulocyte Percent A 0.2 % (0-0.5); Lymphocytes Absolute Auto 2.78 K/mm3 (0.9-3.2); Lymphocytes Percent Auto 49.5 % (18.3-44.2); Mean Corpuscular HGB Conc 30.3 g/dl (32-36); Mean Corpuscular Hemoglobin 24.3 pg (26-34); Mean Platelet Volume 9.7 fl (7.4-10.4); Monocytes Absolute Auto 0.4 K/mm3 (0.1-0.6); Monocytes Percent Auto 7.7 % (2.6-8.5); Neutrophils Absolute Auto 2.2 K/mm3 (1.3-6.7); Neutrophils Percent Auto 39.2 % (45.5-73.1); Platelet Count Result 351 k/mm3 (150-375); Red Blood Count 4.04 M/mm3 (4.2-5.4); Red Cell Distribution Width 15.3 % (11.5-14.5); White Blood Count 5.6 K/mm3 (4.5-10.0)
[2023-02-07 14:04] LABS: Blood Urea Nitrogen 8 mg/dL (8-26); Carbon Dioxide 26 mmol/L (22-30); Chloride 103 mmol/L (98-109); Estimated Glomerular Filt Rate > 60; Glucose 113 mg/dL (70-105); Ionized Calcium (POC) 1.21 mmol/L (1.11-1.31); Potassium 3.6 mmol/L (3.5-4.9); Sodium 141 mmol/L (138-146)
[2023-02-07 16:32] LABS: Iron 33 ug/dL (37-170)
[2023-02-07 16:37] LABS: Alanine Aminotransferase 15 U/L (6-35); Albumin Level 4.5 g/dL (3.5-5.1); Alkaline Phosphatase 60 U/L (38-126); Anion Gap 5 mmol/L (8-16); Aspartate Amino Transferase 22 U/L (14-36); Bilirubin,Total 0.3 mg/dL (0.2-1.3); Blood Urea Nitrogen 9 mg/dL (7-17); Carbon Dioxide 27 mmol/L (22-30); Chloride 105 mmol/L (98-107); Estimated Glomerular Filt Rate > 60; Glucose 113 mg/dL (65-110); Potassium 3.6 mmol/L (3.4-5.0); Sodium 137 mmol/L (137-145)
[2023-02-07 16:45] LABS: Percent Iron Saturation 8 % (20-50)
[2023-02-07 17:06] LABS: Thyroid Stimulating Hormone 0.958 uIU/mL (0.465-4.680)
[2023-02-07 17:10] LABS: Ferritin 6.95 ng/mL (6.24-137)
[2023-02-07 17:41] LABS: Folic Acid 8.1 ng/mL (2.76->20)
== END 2023-02-07 13:49 | disposition home or self-care (01) ==
LOC: ANHLAB 13:49
PROVIDERS: PCP Emergency Medicine; Visit Provider Internal Medicine Hematology & Oncology
DX: D64.9 Anemia, unspecified (principal)
CPT/HCPCS: 36415; 80047; 80053; 82607; 82728; 82746; 83540; 83550; 84443; 85025

== ENCOUNTER 2024-01-26 18:13 | Emergency (ER) | payer OTHER, SELFPAY ==
--- NOTE | ~2024-01-26 | CT_ITS ---
EXAMINATION: CT abdomen pelvis wo/w con DATE: 01/26/2024 20:54 INDICATION: Flank and abdominal pain TECHNIQUE: Computed tomography (CT) of the abdomen and pelvis was performed without intravenous contr ast. CT of the abdomen and pelvis was then performed with of 100 mL Omnipaque 350 intravenous contras t. The dose-length product (DLP) was 1907.48 mGy-cm. Automated exposure control and iterative reconst ruction technique were employed. COMPARISON: 11/15/2011 FINDINGS: The lung bases are clear. The heart size is normal. Cysts of the liver measure up to 4 mm i n the left hepatic lobe. The spleen, pancreas, gallbladder, and adrenal glands are normal. The kidney s are unremarkable. No stones are identified in the kidneys, ureters, or bladder. No hydronephrosis o r hydroureter. No pathologically enlarged abdominal or pelvic lymph nodes are identified. No free int raperitoneal gas or evidence of bowel obstruction. IMPRESSION: 1. No CT correlate for the patient's symptoms. Reviewed, dictated and finalized at location F. CUTTER
[2024-01-26 18:16] VITALS: BP 131/76; PULSE 96; RESP 20; TEMP 36.4; O2SAT 100
[2024-01-26 18:59] LABS: Basophils Percent Auto 0.5 % (0.2-1.2); Eosinophils Absolute Auto 0.2 K/mm3 (0-0.3); Eosinophils Percent Auto 2.4 % (0-4.4); Hematocrit 37.3 % (37.0-47.0); Hemoglobin 11.5 g/dL (12.0-15.0); Immature Granulocyte Absolute 0.01 K/mm3 (0.00-0.031); Immature Granulocyte Percent A 0.2 % (0-0.5); Lymphocytes Absolute Auto 2.96 K/mm3 (0.9-3.2); Lymphocytes Percent Auto 48.1 % (18.3-44.2); Mean Corpuscular HGB Conc 30.8 g/dl (32-36); Mean Corpuscular Volume 84.4 fl (80-100); Mean Platelet Volume 10.3 fl (7.4-10.4); Monocytes Absolute Auto 0.6 K/mm3 (0.1-0.6); Monocytes Percent Auto 8.9 % (2.6-8.5); Neutrophils Absolute Auto 2.5 K/mm3 (1.3-6.7); Neutrophils Percent Auto 39.9 % (45.5-73.1); Platelet Count Result 233 k/mm3 (150-375); Red Blood Count 4.42 M/mm3 (4.2-5.4); Red Cell Distribution Width 14.5 % (11.5-14.5); White Blood Count 6.2 K/mm3 (4.5-10.0)
[2024-01-26 19:11] LABS: Alanine Aminotransferase 15 U/L (6-35); Albumin Level 4.4 g/dL (3.5-5.1); Alkaline Phosphatase 52 U/L (38-126); Anion Gap 6 mmol/L (8-16); Aspartate Amino Transferase 26 U/L (14-36); Bilirubin,Total 0.6 mg/dL (0.2-1.3); Blood Urea Nitrogen 14 mg/dL (7-17); Calcium 9.1 mg/dL (8.4-10.2); Carbon Dioxide 25 mmol/L (22-30); Chloride 106 mmol/L (98-107); Estimated CRCL calculation 84 ml/min; Estimated Glomerular Filt Rate > 60; Glucose 107 mg/dL (65-110); Potassium 3.9 mmol/L (3.4-5.0); Sodium 137 mmol/L (137-145)
--- NOTE | 2024-01-26 19:56 | ED.ABDPAIN ---
HPI - Abdominal Pain General Chief Complaint: Abdominal Pain Stated Complaint: ABD PAIN Time Seen by Provider: 01/26/24 19:22 Source: patient and family () Mode of arrival: ambulatory Limitations: no limitations History of Present Illness HPI narrative: 49 yo post menopausal female presents with right flank pain radiating across her lateral RUQ and into the front /suprapubic/suprior groin. Has not taken anything for pain. No history of kidney stones. Saw a GI doctor in [place] for a colonoscopy last year in November. She can not recall the results but was told to follow up; had not yet. Has had a history of UTIs but without pyelonephritis. No urinary symptoms (urgency, frequency, hematuria, dysuria). She felt dizzy. She also had nausea but this resolved. No vomiting. No fevers, vaginal bleeding/discharge. Related Data Home Medications Medication Instructions Recorded Confirmed cholecalciferol (vitamin D3) 1,250 1,250 mcg PO WEEKLY 03/01/23 03/31/23 mcg (50,000 unit) capsule estradiol 1.25 gram/actuation 1 pump transdermal DAILY 03/01/23 03/31/23 (0.06%) transdermal gel pump (EstroGel) topiramate 25 mg tablet 25 mg PO HS 03/01/23 03/31/23 Allergies Allergy/AdvReac Type Severity Reaction Status Date / Time No Known Allergies Allergy Verified 01/26/24 19:59 [facility] Past Medical History Medical History (Updated 01/27/24 @ 00:00 by Abel Pardo) Cervical dysplasia Depression Surgical History Surgical History (Updated 01/28/24 @ 12:14 by Dee Velázquez MD) History of colonoscopy November 2022; Gastroenterology in [place] History of partial hysterectomy Jul 26, 2019 History of tubal ligation Social History Social History Smoking status: Never smoker Spiritual care concerns: No Exam Narrative: GENERAL: Well-appearing, well-nourished, and in no acute distress. Appears younger than stated age. HEAD: Normocephalic, atraumatic. EYES: Non injected, non icteric ENT: Nares clear, no rhinorrhea or epistaxis. NECK: Supple. CHEST: Speaking in complete sentences. No respiratory distress. HEART: Regular rate and rhythm. . ABDOMEN: Soft, nondistended. TTP at RUQ, RLQ, and suprapubic. No rigidity or guarding. No CVA tenderness bilaterally. EXTREMITIES: Normal range of motion. No edema. SKIN: Warm, dry, no rash. NEURO: No focal deficits. Alert and oriented x3. PSYCH: Normal mood and affect. Course Vital Signs Vital signs: Vital Signs Temperature 97.6 F 01/26/24 18:16 Pulse Rate 96 01/26/24 18:16 Respiratory Rate 20 01/26/24 18:16 Blood Pressure 131/76 01/26/24 18:16 Pulse Oximetry 100 01/26/24 18:16 Oxygen Delivery Room Air 01/26/24 18:16 Temperature 97.6 F 01/26/24 18:16 Pulse Rate 79 01/26/24 22:08 Respiratory Rate 16 01/26/24 22:08 Blood Pressure 119/75 01/26/24 22:08 Pulse Oximetry 100 01/26/24 22:08 Oxygen Delivery Room Air 01/26/24 18:16 MDM - Abdominal Pain MDM Narrative Medical decision making narrative: Patient presents with right flank pain radiating into abdomen. In the ED she is afebrile with VS within normal limits. Pain is at RUQ, RLQ, and suprapubic without rigidity or guarding. No CVA tenderness. Will give pain medication, obtain labs, and obtain CT abdomen pelvis with and without contrast. UA has some bacteria but also squamous cells and no other concerning features thus not felt to represent UTI, especially in absence of urgency/frequency/hematuria/dysuria. CT imaging is negative. Patient is re-evaluated. Pain improved but still complaining of some discomfort. Given pain medication (non narcotic for round 2) and Bentyl. I did review CT imaging myself and do appreciate a slightly distended area of the colon near the right kidney where she was appreciating pain. There is stool in this area. Pain possibly secondary to distended muscle fibers and we discussed con
[2024-01-26 19:59] VITALS: BP 125/77; PULSE 70; RESP 16; O2SAT 100
[2024-01-26 20:16] LABS: Add Urine Microscopic? YES; Appearance Urine Cloudy (Clear); Bacteria Urine 2+ /hpf; Bilirubin Urine Negative (Negative); Blood Urine Negative (Negative); Color Urine Yellow (Yellow); Glucose Urine UA Negative (Negative); Ketones Urine Negative (Negative); Leukocyte Esterase Ur Negative LEU/UL (Negative); Nitrate Urine Negative (Negative); Protein Urine Trace mg/dL (Negative); RBC Urine 0-2 /hpf (0-2); Specific Grav Ur 1.035 (1.001-1.035); Squamous Epithelial Cell Urine Many /hpf (Few); WBC Urine 0-5 /hpf
[2024-01-26] MEDS: SODIUM CHLORIDE 0.9% IV 1,000 ML 999 ML IV CONT (20:22)
[2024-01-26] MEDS: HYDROcodone/acetaminophen (*CRX) 5-325 MG TABLET 1 TAB PO (20:22)
[2024-01-26] MEDS: ACETAMINOPHEN 325 MG TABLET 650 MG PO (20:22)
[2024-01-26 20:33] LABS: Lipase 189 U/L (23-300)
[2024-01-26] MEDS: IBUPROFEN 600 MG TABLET PO (22:03)
[2024-01-26] MEDS: DICYCLOMINE HCL 10 MG CAPSULE PO (22:03)
[2024-01-26] MEDS: MAGNESIUM CITRATE 300 ML BTL 150 ML PO (22:03)
[2024-01-26 22:08] VITALS: BP 119/75; PULSE 79; RESP 16; O2SAT 100
== END 2024-01-26 22:08 | disposition home or self-care (01) ==
PROVIDERS: Preventive Medicine Aerospace Medicine; Emergency Provider Student in an Organized Health Care Education/Training Program; PCP Emergency Medicine
DX: K59.00 Constipation, unspecified (principal); Z87.440 Personal history of urinary (tract) infections; Z90.711 Acquired absence of uterus with remaining cervical stump
CPT/HCPCS: 36415; 74178; 80053; 81001; 81025; 83690; 85025; 96360; 99284; A9270; J7030; Q9967

== ENCOUNTER 2024-09-18 21:00 | Emergency (ER) | payer OTHER, SELFPAY ==
--- NOTE | ~2024-09-18 | CT_ITS ---
EXAMINATION: CT abdomen pelvis w con DATE: 09/18/2024 23:46 INDICATION: Right flank pain TECHNIQUE: Computed tomography (CT) of the abdomen and pelvis was performed with 100 mL Omnipaque-350 intravenous contrast. Automated exposure control and iterative reconstruction technique were employe d. The dose-length product was 1045.76 mGy-cm. COMPARISON: None FINDINGS: Unchanged mild discoid atelectasis/scarring at the basilar left lower lobe. Heart size is normal. No pericardial or pleural effusion. Multiple subcentimeter low-attenuation cysts in the left hepatic lob e. Gallbladder, spleen, pancreas, bilateral adrenal glands and kidneys are normal. Bowels including t he appendix are normal with no obstruction. Bladder is normal. The uterus is not identified and has l ikely been surgically resected. Left ovary is unremarkable. 2 cm right adnexal cyst. Minimal ascites in the deep pelvis. No pathologically enlarged abdominal or pelvic lymphadenopathy. Bones are unremar kable. IMPRESSION: 1. 2 similar right adnexal cyst minimal likely physiologic free fluid in the deep pelvis. No other ac [place] intra-abdominal/pelvic process. Reviewed, dictated and finalized at location A. IMPRESSION: 1. 2 similar right adnexal cyst minimal likely physiologic free fluid in the de ep pelvis. No other acute intra-abdominal/pelvic process.
[2024-09-18 21:05] VITALS: BP 139/85; PULSE 107; RESP 18; TEMP 37.2; O2SAT 100
[2024-09-18 21:54] VITALS: RESP 18; O2SAT 99
[2024-09-18 22:07] LABS: Add Urine Microscopic? YES; Appearance Urine Clear (Clear); Bacteria Urine 4+ /hpf; Bilirubin Urine Negative (Negative); Blood Urine Negative (Negative); Color Urine Yellow (Yellow); Glucose Urine UA Negative (Negative); Ketones Urine Negative (Negative); Leukocyte Esterase Ur Trace LEU/UL (Negative); Nitrate Urine Negative (Negative); Non Pathogenic Casts 0-2; Protein Urine Negative (Negative); RBC Urine 0-2 /hpf (0-2); Specific Grav Ur 1.018 (1.001-1.035); Squamous Epithelial Cell Urine Few /hpf (Few)
--- NOTE | 2024-09-18 23:01 | ED.GENADULT ---
HPI - General Adult General Chief complaint: Unspecified Stated complaint: right arm numbness, neck numbness, fever Time Seen by Provider: 09/18/24 21:52 History of Present Illness HPI narrative: Patient is a 49-year-old female who presents to the emergency department this evening with multiple complaints. Patient states that she has been having some urinary symptoms with increased urinary frequency and right-sided flank pain. Patient also complains of cramping in her bilateral leg and right arm. Denies any recent falls or trauma, denies any focal weakness. Patient denies any chest pain or shortness of breath, any nausea, vomiting, constipation or diarrhea, melena or hematochezia, fevers or chills. Denies any sick contacts at home or any URI symptoms. No additional symptoms or concerns at this time. Related Data Home Medications Medication Instructions Recorded Confirmed cholecalciferol (vitamin D3) 1,250 1,250 mcg PO WEEKLY 03/01/23 03/31/23 mcg (50,000 unit) capsule estradiol 1.25 gram/actuation 1 pump transdermal DAILY 03/01/23 03/31/23 (0.06%) transdermal gel pump (EstroGel) topiramate 25 mg tablet 25 mg PO HS 03/01/23 03/31/23 Allergies Allergy/AdvReac Type Severity Reaction Status Date / Time No Known Allergies Allergy Verified 09/18/24 21:01 Review of Systems Review of Systems: All systems are reviewed and are negative unless stated otherwise in the HPI. [facility] Past Medical History Medical History Cervical dysplasia Depression Surgical History Surgical History History of colonoscopy November 2022; Gastroenterology in [place] History of partial hysterectomy Jul 26, 2019 History of tubal ligation Social History Social History Smoking status: Never smoker Spiritual care concerns: No Exam Narrative: General: Alert, awake, afebrile, in no acute distress. HEENT: PERRL, no rhinorrhea, no post nasal drip, oropharynx clear. Cardiovascular: Regular rate and rhythm, no murmurs, rubs or gallops, no peripheral edema. Respiratory: Clear to auscultation bilaterally, no tachypnea, no wheezing, no rhonchi, no rubs, no respiratory distress. Abdomen: Soft, nontender, nondistended, no rebound, no guarding, no peritoneal signs. Musculoskeletal: No joint swelling or deformity, normal muscle tone. Skin: No rashes or petechia, no signs of infection. Neurological: Alert and oriented to person, place, and time. Follows all commands. No focal deficits, speech is clear and fluent. Course Vital Signs Vital signs: Vital Signs Temperature 98.9 F 09/18/24 21:05 Pulse Rate 107 H 09/18/24 21:05 Respiratory Rate 18 09/18/24 21:05 Blood Pressure 139/85 09/18/24 21:05 Pulse Oximetry 100 09/18/24 21:05 Temperature 98.9 F 09/18/24 21:05 Pulse Rate 88 09/18/24 23:12 Respiratory Rate 18 09/18/24 23:12 Blood Pressure 131/75 09/18/24 23:12 Pulse Oximetry 98 09/18/24 23:12 Medical Decision Making MDM Narrative Medical decision making narrative: The patient was evaluated by myself in the emergency department. History is obtained from patient who is an independent historian and physical exam was performed. External medical records were reviewed at this time. IV was established and pertinent tests were ordered. Patient was administered 1 L IV fluid bolus with normal saline. Laboratory results obtained revealing no acute process. Urinalysis revealed trace leuk esterases with 6-10 white blood cells and 4+ bacteria. Imaging studies obtained included CT abdomen pelvis with IV contrast which was independently interpreted by me revealing a 2 cm right ovarian cyst otherwise no acute process, which is pending final radiology interpretation. Patient has no pain or tenderness to palpation over the right lowe
[2024-09-18] MEDS: SODIUM CHLORIDE 0.9% IV 1,000 ML 999 ML IV CONT (23:07)
[2024-09-18 23:12] VITALS: BP 131/75; PULSE 88; RESP 18; O2SAT 98
[2024-09-18 23:13] LABS: Basophils Percent Auto 0.4 % (0.2-1.2); Eosinophils Absolute Auto 0.1 K/mm3 (0-0.3); Eosinophils Percent Auto 0.8 % (0-4.4); Hematocrit 34.4 % (37.0-47.0); Hemoglobin 11.1 g/dL (12.0-15.0); Immature Granulocyte Absolute 0.01 K/mm3 (0.00-0.031); Immature Granulocyte Percent A 0.1 % (0-0.5); Lymphocytes Absolute Auto 1.55 K/mm3 (0.9-3.2); Lymphocytes Percent Auto 21.7 % (18.3-44.2); Mean Corpuscular HGB Conc 32.3 g/dl (32-36); Mean Corpuscular Hemoglobin 26.6 pg (26-34); Mean Corpuscular Volume 82.3 fl (80-100); Mean Platelet Volume 9.9 fl (7.4-10.4); Monocytes Absolute Auto 0.6 K/mm3 (0.1-0.6); Monocytes Percent Auto 8.3 % (2.6-8.5); Neutrophils Absolute Auto 4.9 K/mm3 (1.3-6.7); Neutrophils Percent Auto 68.7 % (45.5-73.1); Platelet Count Result 307 k/mm3 (150-375); Red Blood Count 4.18 M/mm3 (4.2-5.4); Red Cell Distribution Width 14.3 % (11.5-14.5); White Blood Count 7.1 K/mm3 (4.5-10.0)
[2024-09-18 23:25] LABS: Alanine Aminotransferase 12 U/L (6-35); Albumin Level 4.3 g/dL (3.5-5.1); Alkaline Phosphatase 67 U/L (38-126); Anion Gap 8 mmol/L (4-12); Aspartate Amino Transferase 21 U/L (14-36); Bilirubin,Total 0.5 mg/dL (0.2-1.3); Blood Urea Nitrogen 10 mg/dL (7-17); Calcium 9.1 mg/dL (8.4-10.2); Carbon Dioxide 27 mmol/L (22-30); Chloride 100 mmol/L (98-107); Estimated CRCL calculation 67 ml/min; Estimated Glomerular Filt Rate > 60; Glucose 109 mg/dL (65-110); Magnesium 1.7 mg/dL (1.6-2.3); Sodium 135 mmol/L (137-145)
[2024-09-18 23:36] LABS: Influenza A QL RT-PCR Negative (Negative); Influenza B QL RT-PCR Negative (Negative); SARS-CoV-2 RNA PCR Negative (Negative)
[2024-09-19] MEDS: KETOROLAC 15 MG/ML VIAL (*BKC) IV PUSH (00:26)
[2024-09-19 00:33] VITALS: BP 127/90; PULSE 89; RESP 18; O2SAT 100
== END 2024-09-19 00:37 | disposition home or self-care (01) ==
PROVIDERS: Emergency Provider Emergency Medicine; PCP Physician Assistant
DX: N39.0 Urinary tract infection, site not specified (principal); Z20.822 Contact with and (suspected) exposure to COVID-19; Z90.711 Acquired absence of uterus with remaining cervical stump
CPT/HCPCS: 36415; 74177; 80053; 81001; 83735; 85025; 87077; 87086; 87186; 87636; 96361; 96374; 99284; J1885; J7030; Q9967

== ENCOUNTER 2025-02-14 19:05 | Emergency (ER) | payer OTHER, SELFPAY ==
[2025-02-14 19:13] VITALS: BP 136/88; PULSE 90; RESP 20; TEMP 37; O2SAT 99
--- NOTE | 2025-02-14 19:16 | ED_ITS ---
HPI - General Adult General Chief complaint: Urogenital-Female Stated complaint: Cough/UTI Time Seen by Provider: 02/14/25 19:16 Source: patient, RN notes reviewed and old records reviewed Mode of arrival: ambulatory Limitations: no limitations History of Present Illness HPI narrative: Patient presents with complaints of right-sided back pain along with cough, sneezing, body aches. She reports that occasionally when she coughs or sneezes she is incontinent of a small amount of urine. Denies any numbness or tingling. Denies any injury or trauma. She has been taking [id number] medications for her symptoms with moderate relief. She does not appear to be in any distress at this time Related Data Home Medications ?Medication ?Instructions ?Recorded ?Confirmed ?Last Taken ?Type cholecalciferol (vitamin D3) 1,250 1,250 mcg PO WEEKLY 03/01/23 03/31/23 Unknown History mcg (50,000 unit) capsule estradiol 1.25 gram/actuation 1 pump transdermal DAILY 03/01/23 03/31/23 Unknown History (0.06%) transdermal gel pump (EstroGel) topiramate 25 mg tablet 25 mg PO HS 03/01/23 03/31/23 Unknown History Allergies Allergy/AdvReac Type Severity Reaction Status Date / Time No Known Allergies Allergy Verified 02/14/25 19:07 Review of Systems Review of Systems: All systems reviewed & are unremarkable except as noted in HPI and below Constitutional: Constitutional: Reports no additional constitutional complaints, Reports body ache(s), Reports headache(s) and Reports lethargy ENT: Reports system reviewed and no additional complaints, except as documented Cardiovascular: Cardiovascular: Reports no additional cardiovascular complaints Respiratory: Respiratory: Reports no additional respiratory complaints and Reports cough Gastrointestinal: Gastrointestinal: Reports no additional gastrointestinal complaints Genitourinary: Genitourinary: Reports no additional female genitourinary complaints and Reports as per HPI PMFSH Past Medical History Medical History Cervical dysplasia Depression Surgical History Surgical History History of colonoscopy November 2022; Gastroenterology in [place] History of partial hysterectomy Jul 26, 2019 History of tubal ligation Social History Social History Smoking status: Never smoker Spiritual care concerns: No Comments At the time of my signature, I reviewed and agree with the nursing past medical, surgical, social, and family history. There is no relevant family history pertinent to the patient complaint. Exam Const: General: cooperative, no acute distress, alert and awake Orientation/consciousness: oriented to person, oriented to place and oriented to time HENMT: Head: normal to inspection Mouth: Yes moist mucous membranes Resp: Effort & Inspection: normal respiratory effort and able to speak in complete sentences Auscultation: clear to auscultation bilaterally, no crackles, no rales, no rhonchi and no wheezes Cardio: Palpation: normal PMI Rate: regular rate Rhythm: regular rhythm Heart sounds: S1 normal heart sound present and S2 normal heart sound present Neuro: General: oriented to person, oriented to place and oriented to time Cranial nerves: Yes CN's II-XII intact bilaterally Psych: Appearance: grossly normal Thought process: Normal thought process present Insight: Good insight present (Psych) Judgement: Good judgement present (Psych) Course Course Level of Care: Express Care Visit Vital Signs Vital signs: Vital Signs Temperature 98.6 F 02/14/25 19:13 Pulse Rate 90 02/14/25 19:13 Respiratory Rate 20 02/14/25 19:13 Blood Pressure 136/88 02/14/25 19:13 Pulse Oximetry 99 02/14/25 19:13 Oxygen Delivery Room Air 02/14/25 19:13 Temperature 98.6 F 02/14/25 19:13 Pulse Rate 90 02/14/25 19:13 Respiratory Rate 20 02/14/25 19:13 Blood Pressure 136/88 02/14/25 19:13 Pulse Oximetry 99 02/14/25 19:13 Oxygen Delivery Room Air 02/14/25 19:13 Reviewed Medical Decision Making MDM Narrative Medical decision making narrative: UA without sign of infection. Negative COVID, positive influence. Symptoms viral in origin. Supportive care measures discussed Discharge instructions reviewed with patient, as well as provided in writing per nursing staff. The instructions also include specific and strict return/GO TO THE ER as well as f/u information. All questions have been answered, and the patient deny any further questions with discharge and discharge plan. Some parts of this dictation were generated by voice recognition software and may contain typographical and/or grammatical inaccuracies. Differential Diagnosis Differential Diagnosis: Viral syndrome, UTI, stress incontinence Medical Records Medical records reviewed: Yes I reviewed the external patient's medical records. Vital Signs Vital Signs: Vital Signs Temperature 98.6 F 02/14/25 19:13 Pulse Rate 90 02/14/25 19:13 Respiratory Rate 20 02/14/25 19:13 Blood Pressure 136/88 02/14/25 19:13 Pulse Oximetry 99 02/14/25 19:13 Oxygen Delivery Room Air 02/14/25 19:13 Temperature 98.6 F 02/14/25 19:13 Pulse Rate 90 02/14/25 19:13 Respiratory Rate 20 02/14/25 19:13 Blood Pressure 136/88 02/14/25 19:13 Pulse Oximetry 99 02/14/25 19:13 Oxygen Delivery Room Air 02/14/25 19:13 reviewed Lab Data Lab results reviewed: Yes I reviewed the patient's lab results. Lab results narrative: reviewed Discharge Plan Discharge Clinical Impression: Influenza Patient Disposition: Home, Self-Care Condition: Stable Instructions: Antibiotic Form, Influenza (ED) Additional Instructions: Take medications as prescribed. Follow-up primary care provider. Emergency department for new or worse symptoms Patient Language: South African Prescriptions: New prednisone 50 mg tablet 50 mg PO DAILY Qty: 5 0RF benzonatate 200 mg capsule 200 mg PO TID PRN (Reason: cough) Qty: 30 0RF No Action cholecalciferol (vitamin D3) 1,250 mcg (50,000 unit) Capsule 1,250 mcg PO WEEKLY topiramate 25 mg Tablet 25 mg PO HS EstroGel 1.25 gram/actuation Gel In Metered-Dose Pump 1 pump TRANSDERMAL DAILY fluticasone propionate [Flonase Allergy Relief] 50 mcg/actuation spray,suspension 1 spray intranasal DAILY Qty: 16 0RF Rx Instructions: administer into each nostril Follow-up/Referrals: Carolee,MANE Rhodes [Primary Care Provider] - 1 Week Time of Disposition: 19:46
[2025-02-14 19:19] LABS: EDUAAPPEAR Cloudy; EDUABILI Negative (Negative); EDUABLOOD Negative (Negative); EDUACOLOR1 Yellow; EDUAGLUCOSE Negative (Negative); EDUAKETONE Negative (Negative); EDUALEUKO Negative (Negative); EDUANITRATE Negative (Negative); EDUAPROTEIN 1+ (Negative); EDUASPGRAVITY 1.025; EDUAUROBILI 0.2
[2025-02-14 19:29] VITALS: PULSE 90; RESP 20; O2SAT 99
[2025-02-14 19:45] LABS: EDCOVIDSCREEN Negative (Negative); EDINFLUASCREEN Positive (Negative); EDINFLUBSCREEN Negative (Negative)
== END 2025-02-14 19:53 | disposition home or self-care (01) ==
PROVIDERS: Emergency Provider Nurse Practitioner Family; PCP Physician Assistant
DX: J11.1 Influenza due to unidentified influenza virus with other respiratory manifestations (principal); Z20.822 Contact with and (suspected) exposure to COVID-19
CPT/HCPCS: 81003; 87426; 87804; 99213; G0463

== ENCOUNTER 2025-03-10 10:09 | Emergency (ER) | payer OTHER, SELFPAY ==
--- OUTSIDE RECORDS SUMMARY | 2025-03-10 10:12 | XMS_ITS | Clinical Summary ---
Author Organization [facility] Address [address] [place] [address] Care Team Providers Care Software Systems Engineer Name Role Phone Anabel ENGEL MD, Mauri Unavailable Source Comments [facility],non-owned Affiliates and Associated Physician Practices is amultiple site organization consisting of ambulatory clinics and hospital sitesin [place], [place], [place] and [place]. This disclosure is being madepursuant to the Care Everywhere program and may not contain all information available regarding this patient. Last updated 18.[facility] Allergies No known active allergies Medications * Be aware that medications may not be up to date on this document. Alwaysverify current medications with the patient. Vitamin D, Ergocalciferol, 31740 units CAPS Take by mouth every 7 days Active ferrous sulfate 325 (65 FE) MG tablet Take 1 (one) tablet by mouth once daily Active cyclobenzaprine (Flexeril) 10 MG tablet Take 1 (one) tablet by mouth 3 times daily as needed for Muscle Spasms Active naproxen (Naprosyn) 500 MG tablet Take 1 (one) tablet by mouth 2 times daily as needed for Pain Active topiramate (Topamax) 25 MG tabletIndication s:Intractable migraine with status migrainosus, unspecified migraine type Take 1 (one) tablet by mouth at bedtime 90 tablet 3 11/30/2022 Active rizatriptan (Maxalt) 5 MG tabletIndication s:Intractable migraine with status migrainosus, unspecified migraine type Take 1 tab by mouth once at first sign of migraine. May repeat one time after 2 hours if needed. 9 tablet 11 11/30/2022 Active Active Problems No known active problems Social History Tobacco Use Types Packs/Day Years Used Date Smoking Tobacco: Never Assessed Comments Unknown Sex and Gender Information Value Date Recorded Sex Assigned at Not on file Legal Sex Female 9:13 AM CDT Gender Identity Not on file Sexual Orientation Not on file Last Filed Vital Signs Vital Sign Reading Time Taken Comments Blood Pressure 113/80 11/30/2022 2:00 PM FAMILY LITERACY COORDINATOR Pulse 80 11/30/2022 2:00 PM FAMILY LITERACY COORDINATOR Temperature 36.8 C (98.3 F) 11/30/2022 2:00 PM FAMILY LITERACY COORDINATOR Respiratory Rate - - Oxygen Saturation 99% 11/30/2022 2:00 PM FAMILY LITERACY COORDINATOR Inhaled Oxygen Concentration - - Weight 91.8 kg (202 lb 6.4 oz) 11/30/2022 2:00 P M FAMILY LITERACY COORDINATOR Height 167.6 cm (5' 6 ) 11/30/2022 2:00 PM FAMILY LITERACY COORDINATOR Body Mass Index 32.67 11/30/2022 2:00 PM FAMILY LITERACY COORDINATOR Plan of Treatment Health Maintenance Due Date Last Done Comments COLOGUARD (AGES 45-75) - COL ON CA SCREENING 1974 COLON MONITORING 1974 COLONOSCOPY - COLON CA SCREENING 1974 CT COLONOGRAPHY - COLON CA SCREENING 1974 Colorectal Cancer Screening 1974 FIT - COLON CA SCREENING 1974 FLEX SIG - COLON CA SCREENING 1974 LIPID TESTING 1974 MAMMOGRAM 1974 PAP SMEAR 1974 HIV SCREENING 1989 HEPATITIS C SCREENING 01/12/1992 DTAP/TDAP/TD VACCINES (1 - Tdap) 1993 HEPATITIS B VACCINE (1 of 3 - 19+ 3-dose series) 1993 SCREENING FOR DIABETES 11/30/2022 PNEUMOCOCCAL VACCINE 50+ (1 of 1 - PCV) 2024 ZOSTER VACCINE (1 of 2) 2024 COVID-19 VACCINE ( - 2023-2 5 season) 2024 DEPRESSION SCREENING 11/28/2024 INFLUENZA VACCINE (Season Ended) 2025 HIB VACCINE Aged Out No longer eligi ble based on patient's age to complete this topic HPV VACCINE Aged Out No longer eligi ble based on patient's age to complete this topic MENINGOCOCCAL (Group B) VACC INE SHARED DECISION-MAKING Aged Out No longer eligibl e based on patient's age to complete this topic MENINGOCOCCAL GROUPS A/C/Y/W VACCINE Aged Out No longer eligible b ased on patient's age to complete this topic PNEUMOCOCCAL VACCINE Aged Out No long er eligible based on patient's age to complete this topic Insurance [facility] Care Teams Software Systems Engineer Relationship Specialty [place] [id number] [address] [place] [address] Orthopedic Surgery 05/21/13
--- OUTSIDE RECORDS SUMMARY | 2025-03-10 10:12 | XMS_ITS | Clinical Summary ---
Author Organization [facility] (Formerly [facility])[3] Ladarius Harrisjane Address [address] [place] [address] Care Team Providers Care Back End Architect Name Role Phone Unavailable Primary Care Provider Unavailabl e Allergies No known active allergies Medications topiramate (TOPAMAX) 25 mg tablet Take 25 mg by mouth. 11/30/2022 Active Estradiol (EstroGel) 1.25 gram/actuation Gel in Metered-dose Pump Apply to skin as directed. Active Active Problems No known active problems Family History Medical History Relation Name Comments Diabetes Brother No Known Problems Daughter 1 No Known Problems Daughter 2 Lung Cancer Father Skin Cancer Father Heart Disease Mother Stomach Cancer Mother Relation Name Status Comments Brother Alive Daughter 1 Alive Daughter 2 Alive Father Mother Alive Social History Tobacco Use Types Packs/Day Years Used Date Smoking Tobacco: Never Tobacco Cessation:Counseling Given: Not Answered Alcohol Use Standard Drinks/Week Comments Yes 1 (1 standard drink = 0.6 oz pur e alcohol) Comments Unknown Sex and Gender Information Value Date Recorded Sex Assigned at Not on file Legal Sex Female 3:50 PM SCRAPER BURRER Gender Identity Not on file Sexual Orientation Not on file Last Filed Vital Signs Vital Sign Reading Time Taken Comments Blood Pressure 117/81 06/13/2023 2:10 PM CDT Pulse 71 06/13/2023 2:10 PM CDT Temperature 36 C (96.8 F) 06/13/2023 2:10 PM CDT Respiratory Rate 10 06/13/2023 2:10 PM CDT Oxygen Saturation 98% 06/13/2023 2:10 PM CDT Inhaled Oxygen Concentration - - Weight 88.5 kg (195 lb) 06/13/2023 2:10 PM CDT Height 170.7 cm (5' 7.2 ) 01/24/2023 2:59 PM SCRAPER BURRER Body Mass Index 30.36 01/24/2023 2:59 PM SCRAPER BURRER Plan of Treatment Health Maintenance Due Date Last Done Comments DTAP/TDAP/TD VACCINES (1 - Tdap) 1993 HEPATITIS B VACCINES (1 of 3 - 19+ 3-dose series) 1993 HPV/Cotest (21-29) 1995 CERVICAL CANCER SCREENING 2004 HPV/Cotest (30-65) 2004 PAP SMEAR 2004 BREAST CANCER SCREENING 2014 COLORECTAL SCREENING 2019 Colorectal Cancer Screening 2019 FIT-DNA Q 3 years 2019 FIT/FOBT Q 1 year 2019 Flex Sig/CT Colonography Q 5 years 2019 ZOSTER VACCINE (1 of 2) 2024 INFLUENZA VACCINE (#1) 2024 PNEUMOCOCCAL VACCINE 0-49 YEARS Aged Out No longer eligible based on patient's age to complete this topic Insurance
[2025-03-10 10:46] VITALS: BP 139/90; PULSE 82; RESP 18; TEMP 36.4; O2SAT 100
--- OUTSIDE RECORDS SUMMARY | 2025-03-10 11:35 | XMS_ITS | Clinical Summary ---
Author Organization [facility] Address [address] [place] [address] Care Team Providers Care Handle Bender Name Role Phone Anabel ENGEL MD, Mauri Unavailable [phone] Source Comments [facility],non-owned Affiliates and Associated Physician Practices is amultiple site organization consisting of ambulatory clinics and hospital sitesin [place], [place], [place] and [place]. This disclosure is being madepursuant to the Care Everywhere program and may not contain all information available regarding this patient. Last updated 18.[facility] [employer] Allergies No known active allergies Medications * Be aware that medications may not be up to date on this document. Alwaysverify current medications with the patient. Vitamin D, Ergocalciferol, 35847 units CAPS Take by mouth every 7 [...] Comments Blood Pressure 113/80 11/30/2022 2:00 PM PLANNING INTERN Pulse 80 11/30/2022 2:00 PM PLANNING INTERN Temperature 36.8 C (98.3 F) 11/30/2022 2:00 PM PLANNING INTERN Respiratory Rate - - Oxygen Saturation 99% 11/30/2022 2:00 PM PLANNING INTERN Inhaled Oxygen Concentration - - Weight 91.8 kg (202 lb 6.4 oz) 11/30/2022 2:00 P M PLANNING INTERN Height 167.6 cm (5' 6 ) 11/30/2022 2:00 PM PLANNING INTERN Body Mass Index 32.67 11/30/2022 2:00 PM PLANNING INTERN Plan of Treatment Health Maintenance Due Date [...] patient's age to complete this topic Insurance [facility] Care Teams Handle Bender Relationship Specialty [place] [id number] [address] [place] [address] Orthopedic Surgery 05/21/13
--- OUTSIDE RECORDS SUMMARY | 2025-03-10 11:35 | XMS_ITS | Clinical Summary ---
Author Organization [facility] Ladarius Harrisjane Address [address] [place] [address] Care Team Providers Care Public Health Aides Teacher Name Role Phone Unavailable Primary Care Provider [...] on file Legal Sex Female 3:50 PM CHAIN BUILDER LOOM CONTROL Gender Identity Not on file Sexual Orientation [...] cm (5' 7.2 ) 01/24/2023 2:59 PM CHAIN BUILDER LOOM CONTROL Body Mass Index 30.36 01/24/2023 2:59 PM CHAIN BUILDER LOOM CONTROL Plan of Treatment Health Maintenance Due Date [...]
[2025-03-10] MEDS: ACETAMINOPHEN 500 MG TABLET 1000 MG PO (11:41)
[2025-03-10] MEDS: LIDOCAINE 5% PATCH 1 PATCH TRANSDERM (11:41)
[2025-03-10] MEDS: methocarbamoL 750 MG TABLET 1500 MG PO (11:41)
[2025-03-10] MEDS: KETOROLAC 30 MG/ML VIAL (*BKC) IM (11:41)
--- NOTE | 2025-03-10 11:50 | ED_ITS ---
HPI - General Adult General Chief complaint: Neck Pain/Injury Stated complaint: neck pain Time Seen by Provider: 03/10/25 11:16 History of Present Illness HPI narrative: This is a 50-year-old female presenting with neck pain. Yesterday patient tender left and felt a pop in her neck. After that she had stiffness on the left side of her neck going into her trapezius muscle. She went to bed after taking Aleve when she woke up this morning her neck was very stiff. She is finding it hard to move side to side. She has also developed a tension headache. She denies any radiation down her arms. No weakness to any extremity. No urinary retention or bowel incontinence or lower extremity weakness. Related Data Home Medications ?Medication ?Instructions ?Recorded ?Confirmed ?Last Taken ?Type cholecalciferol (vitamin D3) 1,250 1,250 mcg PO WEEKLY 03/01/23 03/31/23 Unknown History mcg (50,000 unit) capsule estradiol 1.25 gram/actuation 1 pump transdermal DAILY 03/01/23 03/31/23 Unknown History (0.06%) transdermal gel pump (EstroGel) topiramate 25 mg tablet 25 mg PO HS 03/01/23 03/31/23 Unknown History Allergies Allergy/AdvReac Type Severity Reaction Status Date / Time No Known Allergies Allergy Verified 02/14/25 19:07 [facility] Past Medical History Medical History Cervical dysplasia Depression Surgical History Surgical History History of colonoscopy November 2022; Gastroenterology in [place] History of partial hysterectomy Jul 26, 2019 History of tubal ligation Social History Social History Smoking status: Never smoker Spiritual care concerns: No Exam Narrative: APPEARANCE: No apparent distress. Head: atraumatic. EYES: EOMI, NOSE: Atraumatic NECK: No midline cervical tenderness, tenderness and stiffness over the left paracervical muscles and left trapezius RESPIRATORY: No increased rate of breathing CARDIOVASCULAR: RRR, ABDOMINAL: Non-distended MUSCULOSKELETAl: No obvious deformities NEURO: Alert. Cranial nerves 2-12 grossly intact. Sensation light touch, motor function cerebellar function intact for 4 extremities. Gait exam was normal. SKIN:: Warm, dry. Normal color PSYCHIATRIC: Normal affect Course Vital Signs Vital signs: Vital Signs Temperature 97.6 F 03/10/25 10:46 Pulse Rate 82 03/10/25 10:46 Respiratory Rate 18 03/10/25 10:46 Blood Pressure 139/90 03/10/25 10:46 Pulse Oximetry 100 03/10/25 10:46 Oxygen Delivery Room Air 03/10/25 10:46 Temperature 97.6 F 03/10/25 10:46 Pulse Rate 82 03/10/25 10:46 Respiratory Rate 18 03/10/25 10:46 Blood Pressure 139/90 03/10/25 10:46 Pulse Oximetry 100 03/10/25 10:46 Oxygen Delivery Room Air 03/10/25 10:46 Medical Decision Making MDM Narrative Medical decision making narrative: -Course: 51-year-old female presenting with neck pain. Physical exam with tenderness over left paracervical muscles and left trapezius. Neurologic exam is normal. No other red flags on history and physical. Patient treated with NSAIDs muscle relaxers lidocaine patch. Discharged with prescriptions. Given return precautions. Primary care follow-up -DDX includes but is not limited to: Muscle strain, muscle sprain, muscle spasm Vital Signs Vital Signs: Vital Signs Temperature 97.6 F 03/10/25 10:46 Pulse Rate 82 03/10/25 10:46 Respiratory Rate 18 03/10/25 10:46 Blood Pressure 139/90 03/10/25 10:46 Pulse Oximetry 100 03/10/25 10:46 Oxygen Delivery Room Air 03/10/25 10:46 Temperature 97.6 F 03/10/25 10:46 Pulse Rate 82 03/10/25 10:46 Respiratory Rate 18 03/10/25 10:46 Blood Pressure 139/90 03/10/25 10:46 Pulse Oximetry 100 03/10/25 10:46 Oxygen Delivery Room Air 03/10/25 10:46 Discharge Plan Discharge Clinical Impression: Cervicalgia Patient Disposition: Home Condition: Stable Instructions: Antibiotic Form, Neck Pain (ED) Additional Instructions: Please take the antibiotics as instructed. Please follow-up with your primary care physician. Return if develops severe pain or weakness to any extremity. Patient Language: Ukrainian Prescriptions: New acetaminophen 500 mg tablet 1,000 mg PO TID PRN (Reason: quiana) 7 Days Qty: 42 0RF ibuprofen 800 mg tablet 800 mg PO TID PRN (Reason: pain) 7 Days Qty: 21 0RF methocarbamol 750 mg tablet 1,500 mg PO TID Qty: 42 0RF lidocaine 5 % adhesive patch,medicated 1 patch topical DAILY Qty: 15 0RF Rx Instructions: leave on most painful area for up to 12 hrs No Action cholecalciferol (vitamin D3) 1,250 mcg (50,000 unit) Capsule 1,250 mcg PO WEEKLY topiramate 25 mg Tablet 25 mg PO HS EstroGel 1.25 gram/actuation Gel In Metered-Dose Pump 1 pump TRANSDERMAL DAILY prednisone 50 mg tablet 50 mg PO DAILY Qty: 5 0RF benzonatate 200 mg capsule 200 mg PO TID PRN (Reason: cough) Qty: 30 0RF fluticasone propionate [Flonase Allergy Relief] 50 mcg/actuation spray,suspension 1 spray intranasal DAILY Qty: 16 0RF Rx Instructions: administer into each nostril Follow-up/Referrals: Carolee,MANE Rhodes [Primary Care Provider] -
[2025-03-10 12:13] VITALS: BP 130/74; PULSE 74; RESP 18; O2SAT 98
== END 2025-03-10 12:10 | disposition home or self-care (01) ==
PROVIDERS: Emergency Provider Emergency Medicine; PCP Physician Assistant
DX: M54.2 Cervicalgia (principal); Z90.711 Acquired absence of uterus with remaining cervical stump
CPT/HCPCS: 96372; 99283; A9270; J1885

== ENCOUNTER 2025-06-11 16:55 | Emergency (ER) | payer OTHER, SELFPAY ==
--- NOTE | ~2025-06-11 | XR_ITS ---
EXAMINATION: XR wrist LT min 3V, XR hand LT min 3V DATE: 06/11/2025 17:27 INDICATION: Nontraumatic pain at the left wrist and thumb TECHNIQUE: 1. Posteroanterior, oblique, and lateral views of the left wrist were obtained. 2. Dorsal palmar, oblique and lateral views of the left hand were obtained. COMPARISON: None. FINDINGS: Alignment of the left hand and wrist is normal. No fracture identified. Mild polyarticular osteoarth ritis at the triscaphe, first carpometacarpal and first interphalangeal joints. No erosions to sugges t inflammatory arthritis. Soft tissues are unremarkable. IMPRESSION: 1. Mild osteoarthritis at the triscaphe, first carpometacarpal and first interphalangeal joints. Reviewed, dictated and finalized at location A. IMPRESSION: 1. Mild osteoarthritis at the triscaphe, first carpometacarpal and first interp halangeal joints.
[2025-06-11 16:57] VITALS: BP 127/77; PULSE 100; RESP 16; O2SAT 100
--- OUTSIDE RECORDS SUMMARY | 2025-06-11 16:57 | XMS_ITS | Clinical Summary ---
Author Organization [facility] Ladarius Harrisjane Address [address] [place] [address] Care Team Providers Care Hook Puller Name Role Phone Unavailable Primary Care Provider [...] on file Legal Sex Female 3:50 PM PAPER FOLDER Gender Identity Not on file Sexual Orientation [...] 2:10 PM CDT Height 170.7 cm (5' 7.2) 01/24/2023 2:59 PM PAPER FOLDER Body Mass Index 30.36 01/24/2023 2:59 PM PAPER FOLDER Plan of Treatment Health Maintenance Due Date Last Done Comments DTAP/TDAP/TD VACCINES (1 - Tdap) 1993 HEPATITIS B VACCINES (1 of 3 - 19+ 3-dose series) 12/29 HPV/Cotest (21-29) 1995 CERVICAL CANCER SCREENING 2004 HPV/Cotest (30-65) 2004 PAP SMEAR 2004 BREAST CANCER SCREENING 2014 COLORECTAL SCREENING 2019 Colorectal Cancer Screening 2019 FIT-DNA Q 3 years 2019 FIT/FOBT Q 1 year 2019 Flex Sig/CT Colonography Q 5 years 2019 ZOSTER VACCINE (1 of 2) 2024 INFLUENZA VACCINE (#1) 2025 Insurance
--- OUTSIDE RECORDS SUMMARY | 2025-06-11 16:57 | XMS_ITS | Clinical Summary ---
Author Organization [facility] Address [address] [place] [address] Care Team Providers Care Copy Center Associate Name Role Phone Anabel ENGEL MD, Mauri Unavailable [phone] Source Comments [facility],non-owned Affiliates and Associated Physician Practices is amultiple site organization consisting of ambulatory clinics and hospital sitesin [place], [place], [place] and [place]. This disclosure is being madepursuant to the Care Everywhere program and may not contain all information available regarding this patient. Last updated 18.[facility] [employer] Allergies No known active allergies Medications * Be aware that medications may not be up to date on this document. Alwaysverify current medications with the patient. Vitamin D, Ergocalciferol, 59154 units CAPS Take by mouth every 7 [...] Comments Blood Pressure 113/80 11/30/2022 2:00 PM RENTAL CAR FERRY DRIVER Pulse 80 11/30/2022 2:00 PM RENTAL CAR FERRY DRIVER Temperature 36.8 C (98.3 F) 11/30/2022 2:00 PM RENTAL CAR FERRY DRIVER Respiratory Rate - - Oxygen Saturation 99% 11/30/2022 2:00 PM RENTAL CAR FERRY DRIVER Inhaled Oxygen Concentration - - Weight 91.8 kg (202 lb 6.4 oz) 11/30/2022 2:00 P M RENTAL CAR FERRY DRIVER Height 167.6 cm (5' 6) 11/30/2022 2:00 PM RENTAL CAR FERRY DRIVER Body Mass Index 32.67 11/30/2022 2:00 PM RENTAL CAR FERRY DRIVER Plan of Treatment Health Maintenance Due Date Last Done Comments COLOGUARD (AGES 45-75) - COL ON CA SCREENING 1974 COLON MONITORING 1974 COLONOSCOPY - COLON CA SCREENING 1974 CT COLONOGRAPHY - COLON CA SCREENING 1974 Colorectal Cancer Screening 1974 FIT - COLON CA SCREENING 1974 FLEX SIG - COLON CA SCREENING 1974 LIPID TESTING 1974 MAMMOGRAM 1974 HIV SCREENING 1989 HEPATITIS C SCREENING 01/12/1992 DTAP/TDAP/TD VACCINES (1 - Tdap) 1993 HEPATITIS B VACCINE (1 of 3 - 19+ 3-dose series) 1993 PAP SMEAR 1995 SCREENING FOR DIABETES 11/30/2022 9, 04/20/2019 PNEUMOCOCCAL VACCINE 50+ (1 of 1 - PCV) 2024 ZOSTER VACCINE (1 of 2) 2024 COVID-19 VACCINE (1 2023-2 5 season) 2024 DEPRESSION SCREENING 11/28/2024 INFLUENZA VACCINE (#1) 2025 HIB VACCINE Aged Out No longer eligi ble based on patient's age to complete this topic HPV VACCINE Aged Out No longer eligi ble based on patient's age to complete this topic MENINGOCOCCAL (Group B) VACCINE SHARED DECISION-MAKING Aged Out No longer eligible based on patient's age to complete this topic MENINGOCOCCAL GROUPS A/C/Y/W VACCINE Aged Out No longer eligible b ased on patient's age to complete this topic Insurance [facility] Care Teams Copy Center Associate Relationship Specialty [place] [address] [address] [address] Orthopedic Surgery 05/21/13
--- NOTE | 2025-06-11 17:11 | ED_ITS ---
HPI - Extremity Problem General Chief complaint: Extremity Problem,Nontraumatic Stated complaint: L arm swelling Time Seen by Provider: 06/11/25 17:01 History of Present Illness HPI Narrative: 50-year-old female presents to emergency department for pain to her left wrist and hand pain since this morning. Patient states the pain is on the dorsum and volar aspect of her wrist and over the 1st metacarpal. She reports numbness and tingling in her 2nd through 3rd digits. 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 She denies injury or trauma. Denies fever, warmth erythema. She has not taken anything for her pain. Related Data Home Medications ?Medication ?Instructions ?Recorded ?Confirmed ?Last Taken ?Type cholecalciferol (vitamin D3) 1,250 1,250 mcg PO WEEKLY 03/01/23 03/31/23 Unknown History mcg (50,000 unit) capsule estradiol 1.25 gram/actuation 1 pump transdermal DAILY 03/01/23 03/31/23 Unknown History (0.06%) transdermal gel pump (EstroGel) topiramate 25 mg tablet 25 mg PO HS 03/01/23 03/31/23 Unknown History Allergies Allergy/AdvReac Type Severity Reaction Status Date / Time No Known Allergies Allergy Verified 06/11/25 17:06 Review of Systems Review of Systems: All systems reviewed & are unremarkable except as noted in HPI and below PMFSH Past Medical History Medical History Depression Cervical dysplasia Surgical History Surgical History History of partial hysterectomy Jul 26, 2019 History of colonoscopy November 2022; Gastroenterology in [place] History of tubal ligation Social History Social History Smoking status: Never smoker Spiritual care concerns: No Exam Narrative: GENERAL: Well-appearing, well-nourished, and in no acute distress. HEAD: Normocephalic, atraumatic. EYES:EOMI. ENT: Nares clear, no rhinorrhea or epistaxis. Mucous membranes moist. NECK: Supple. CHEST: Clear to auscultation. No respiratory distress. HEART: Regular rate and rhythm. No murmur heard. Normal peripheral pulses. EXTREMITIES: LUE: Tenderness to the distal radius, 1st metatarsal and on palpation with no obvious deformity, erythema, warmth or edema. Patient has full range of motion of all digits and wrist. Positive Tinel sign. Sensation intact throughout. Radial, median, ulnar nerves are intact. Radial pulses 2+. Cap refill less than 2. SKIN: Warm, dry, no rash. NEURO: No focal deficits. Alert and oriented x3 Course Vital Signs Vital signs: Vital Signs Pulse Rate 100 06/11/25 16:57 Respiratory Rate 16 06/11/25 16:57 Blood Pressure 127/77 06/11/25 16:57 Pulse Oximetry 100 06/11/25 16:57 Pulse Rate 80 06/11/25 18:35 Respiratory Rate 14 06/11/25 18:35 Blood Pressure 132/74 06/11/25 18:35 Pulse Oximetry 98 06/11/25 18:35 MDM - Extremity (Nontraumatic) MDM Narrative Medical decision making narrative: 50-year-old female presents to the emergency department for atraumatic left wrist and hand pain that she woke up with this morning. Is endorsing intermittent tingling and numbness to her 2nd through 3rd digits. She works typing on her computer all day for work. Vitals are stable. Exam is notable for tenderness diffusely throughout the wrist 1st metatarsal with positive Tinel sign. She is otherwise neurovascularly intact. X-ray of the wrist shows mild osteoarthritis of the triscaphe, first carpal metacarpal and 1st interphalangeal joints consistent with patient's tenderness. She is updated on results. She is placed in Bradly wrap and advised to obtain a wrist splint cock-up. Discussed supportive care and anti-inflammatories as well as close follow-up with PCP. Discussed strict ED return precautions. Patient is agreeable with the plan verbalized understanding. Discharged in stable condition. Discharge Plan Discharge Clinical Impression: Arthritis of wrist, Carpal tunnel syndrome Patient Disposition: Home Condition: Stable Instructions: Antibiotic Form, Wrist Injury (ED), Carpal Tunnel Syndrome (DC) Additional Instructions: Please try and obtain a wrist cock up splint as discussed and wear it while sleeping at minimum. Please rest, ice, elevate and keep your risk compressed. Take anti-inflammatories as needed for pain. Follow-up closely with her primary care provider. Return to the emergency department if you develop fever, increasing pain or other concerning symptoms. Patient Language: Chinese Prescriptions: New naproxen 500 mg tablet 500 mg PO BID PRN (Reason: pain) Qty: 20 0RF No Action cholecalciferol (vitamin D3) 1,250 mcg (50,000 unit) Capsule 1,250 mcg PO WEEKLY topiramate 25 mg Tablet 25 mg PO HS EstroGel 1.25 gram/actuation Gel In Metered-Dose Pump 1 pump TRANSDERMAL DAILY prednisone 50 mg tablet 50 mg PO DAILY Qty: 5 0RF benzonatate 200 mg capsule 200 mg PO TID PRN (Reason: cough) Qty: 30 0RF fluticasone propionate [Flonase Allergy Relief] 50 mcg/actuation spray,suspension 1 spray intranasal DAILY Qty: 16 0RF Rx Instructions: administer into each nostril acetaminophen 500 mg tablet 1,000 mg PO TID PRN (Reason: quiana) 7 Days Qty: 42 0RF ibuprofen 800 mg tablet 800 mg PO TID PRN (Reason: pain) 7 Days Qty: 21 0RF methocarbamol 750 mg tablet 1,500 mg PO TID Qty: 42 0RF lidocaine 5 % adhesive patch,medicated 1 patch topical DAILY Qty: 15 0RF Rx Instructions: leave on most painful area for up to 12 hrs Follow-up/Referrals: Carolee,MANE Rhodes [Primary Care Provider] -
--- OUTSIDE RECORDS SUMMARY | 2025-06-11 17:40 | XMS_ITS | Clinical Summary ---
Author Organization [facility] Ladarius Harrisjane Address [address] [place] [address] Care Team Providers Care Salesperson Pets And Pet Supplies Name Role Phone Unavailable Primary Care Provider [...] on file Legal Sex Female 3:50 PM INSPECTOR TOYS Gender Identity Not on file Sexual Orientation [...] 170.7 cm (5' 7.2) 01/24/2023 2:59 PM INSPECTOR TOYS Body Mass Index 30.36 01/24/2023 2:59 PM INSPECTOR TOYS Plan of Treatment Health Maintenance Due Date [...]
--- OUTSIDE RECORDS SUMMARY | 2025-06-11 17:40 | XMS_ITS | Clinical Summary ---
Author Organization [facility] Address [address] [place] [address] Care Team Providers Care Human Performance Technologist Name Role Phone Anabel ENGEL MD, Mauri Unavailable [phone] Source Comments [facility],non-owned Affiliates and Associated Physician Practices is amultiple site organization consisting of ambulatory clinics and hospital sitesin [place], [place], [place] and [place]. This disclosure is being madepursuant to the Care Everywhere program and may not contain all information available regarding this patient. Last updated 18.[facility] [employer] Allergies No known active allergies Medications * Be aware that medications may not be up to date on this document. Alwaysverify current medications with the patient. Vitamin D, Ergocalciferol, 72412 units CAPS Take by mouth every 7 [...] Comments Blood Pressure 113/80 11/30/2022 2:00 PM VIDEO GAME SCRIPT WRITER Pulse 80 11/30/2022 2:00 PM VIDEO GAME SCRIPT WRITER Temperature 36.8 C (98.3 F) 11/30/2022 2:00 PM VIDEO GAME SCRIPT WRITER Respiratory Rate - - Oxygen Saturation 99% 11/30/2022 2:00 PM VIDEO GAME SCRIPT WRITER Inhaled Oxygen Concentration - - Weight 91.8 kg (202 lb 6.4 oz) 11/30/2022 2:00 P M VIDEO GAME SCRIPT WRITER Height 167.6 cm (5' 6) 11/30/2022 2:00 PM VIDEO GAME SCRIPT WRITER Body Mass Index 32.67 11/30/2022 2:00 PM VIDEO GAME SCRIPT WRITER Plan of Treatment Health Maintenance Due Date [...] patient's age to complete this topic Insurance [facility] Care Teams Human Performance Technologist Relationship Specialty [place] [address] [address] [address] Orthopedic Surgery 05/21/13
[2025-06-11] MEDS: NAPROXEN 500 MG TABLET PO (17:58)
[2025-06-11 18:35] VITALS: BP 132/74; PULSE 80; RESP 14; O2SAT 98
== END 2025-06-11 18:57 | disposition home or self-care (01) ==
PROVIDERS: Emergency Provider Physician Assistant; PCP Physician Assistant
DX: M19.032 Primary osteoarthritis, left wrist (principal); G56.02 Carpal tunnel syndrome, left upper limb; F32.A Depression, unspecified
CPT/HCPCS: 73110; 73130; 99283; A9270

== ENCOUNTER 2025-10-01 20:54 | Emergency (ER) | payer OTHER, SELFPAY ==
--- NOTE | ~2025-10-01 | CT_ITS ---
CT abdomen pelvis wo con INDICATION:rule out kidney stone . COMPARISON: 09/18/2024 TECHNIQUE: Axial 2.5 mm images of the abdomen were obtained without IV or oral contrast. Diagnostic sensitivity is limited due to lack of IV contrast. FINDINGS: The lung bases are clear. The liver parenchyma is unremarkable. No intrahepatic mass or ductal dilatation is evident. The gallbladder is unremarkable. The pancreas and spleen are normal in appearance. The adrenal glands are symmetric in size. The kidneys are unremarkable. No intrarenal stones are noted. There is no hydronephrosis. Evaluation of the stomach and bowel loops are limited due to lack of oral contrast. There is no evidence of acute appendicitis. The bladder and rectum are normal. No free intraperitoneal fluid or air is evident. Prominent mesenteric, retroperitoneal and inguinal lymph nodes are noted measuring up to 8 mm in short axis dimension. This is stable when compared to previous study. The aorta, visceral vessels and renal arteries demonstrate normal caliber. The lower thoracic and lumbar vertebrae are in normal alignment. IMPRESSION: No acute abnormality is noted in the abdomen and pelvis. All CT scans at this facility are performed using low dose modulation techniques as appropriate to perform exam including the following: automated exposure control; use of iterative reconstruction technique; adjustment of the mA and/or kV according to patient size (this includes techniques or standardized protocols for targeted exams where dose is matched to indication/reason for exam). Reviewed, dictated and finalized at location S. [facility] IMPRESSION: No acute abnormality is noted in the abdomen and pelvis. All CT scans at this facility are performed using low dose modulation techniqu es as appropriate to perform exam including the following: automated exposure c ontrol; use of iterative reconstruction technique; adjustment of the mA and/or kV according to patient size (this includes techniques or standardized protocol s for targeted exams where dose is matched to indication/reason for exam).
--- NOTE | ~2025-10-01 | CT_ITS ---
CT thoracic lumbar wo con INDICATION: Back pain COMPARISON: None available. TECHNIQUE: Axial images of the thoracic lumbar spine were obtained without contrast. Additional coronal and sagittal reformatted images were rendered. FINDINGS: The axial images demonstrate no acute fracture or paravertebral soft tissue swelling. There is no high-grade central or foraminal stenosis. No significant degenerative disc changes are noted. Additional sagittal and coronal reformatted images were obtained. The vertebral body are in alignment. There is no compression fracture, subluxation, or paravertebral soft tissue swelling. The disc spaces are preserved. IMPRESSION: No acute compression fracture or spondylolysis. All CT scans at this facility are performed using low dose modulation techniques as appropriate to perform exam including the following: automated exposure control; use of iterative reconstruction technique; adjustment of the mA and/or kV according to patient size (this includes techniques or standardized protocols for targeted exams where dose is matched to indication/reason for exam). Reviewed, dictated and finalized at location S. FACTURING PLANT TECHNICIAN IMPRESSION: No acute compression fracture or spondylolysis. All CT scans at this facility are performed using low dose modulation techniqu es as appropriate to perform exam including the following: automated exposure c ontrol; use of iterative reconstruction technique; adjustment of the mA and/or kV according to patient size (this includes techniques or standardized protocol s for targeted exams where dose is matched to indication/reason for exam).
--- NOTE | ~2025-10-01 | CT_ITS ---
CT cervical spine wo con HISTORY: neck pain COMPARISON: None TECHNIQUE: Axial images of the cervical spine were obtained. Multiplanar reconstruction in the coronal, sagittal and axial reformats to evaluate for cervical fracture. FINDINGS: The images demonstrate no acute fracture or paravertebral soft tissue swelling. There is no high-grade central or foraminal stenosis. Mild disc bulging with uncovertebral hypertrophy are noted. The visualized aspect of the upper lungs are clear. Multiple thyroid nodules are present measuring up to 12 mm. This can be further evaluated with nonemergent ultrasound. IMPRESSION: No acute fracture or subluxation. All CT scans at this facility are performed using low dose modulation techniques as appropriate to perform exam including the following: automated exposure control; adjustment of the mA and/or kV according to patient size (this includes techniques or standardized protocols for targeted exams where does is matched to indication/reason for exam; i.e. extremities or head); use of iterative reconstruction technique). Reviewed, dictated and finalized at location S. A HUT TEAM MEMBER IMPRESSION: No acute fracture or subluxation. All CT scans at this facility are performed using low dose modulation techniqu es as appropriate to perform exam including the following: automated exposure c ontrol; adjustment of the mA and/or kV according to patient size (this includes techniques or standardized protocols for targeted exams where does is matched to indication/reason for exam; i.e. extremities or head); use of iterative marguerite nstruction technique).
[2025-10-01 21:08] VITALS: BP 149/101; PULSE 79; RESP 16; TEMP 36.5; O2SAT 100
--- NOTE | 2025-10-01 21:46 | ED_ITS ---
HPI - Back Pain/Injury General Chief Complaint: Back Pain/Injury Stated Complaint: back pain radiating to neck x2 days Time Seen by Provider: 10/01/25 21:32 History of Present Illness HPI Narrative: Patient is a 50-year-old female who presents to the ER with complaints left flank pain, left-sided back pain that radiates up to her left neck and shoulder. Patient reports her pain started earlier today. She feels as though something is moving across her body. Patient voices multiple diagnostic concerns including blood clots and cancer because she said she had relatives who were diagnosed with these conditions. She denies any chest pain, abdominal pain, saddle anesthesia, recent fevers, urinary symptoms. Patient does report on the way here she experienced numbness and tingling in her left hand. She endorses a history of cervicalgia, and migraine headaches. Related Data Home Medications ?Medication ?Instructions ?Recorded ?Confirmed ?Last Taken ?Type cholecalciferol (vitamin D3) 1,250 1,250 mcg PO WEEKLY 03/01/23 03/31/23 Unknown History mcg (50,000 unit) capsule estradiol 1.25 gram/actuation 1 pump transdermal DAILY 03/01/23 03/31/23 Unknown History (0.06%) transdermal gel pump (EstroGel) topiramate 25 mg tablet 25 mg PO HS 03/01/23 3 Unknown History Allergies Allergy/AdvReac Type Severity Reaction Status Date / Time No Known Allergies Allergy Verified 06/11/25 17:06 Review of Systems Review of Systems: All systems reviewed & are unremarkable except as noted in HPI and below PMFSH Past Medical History Medical History Depression Cervical dysplasia Surgical History Surgical History History of partial hysterectomy Jul 26, 2019 History of colonoscopy November 2022; Gastroenterology in [place] History of tubal ligation Social History Social History Spiritual care concerns: No Exam Narrative: GENERAL: Well appearing, well-nourished, non-toxic, in no acute distress. HEAD: Normocephalic, atraumatic. NECK: Supple. No adenopathy, no masses. RESPIRATORY: Airway patent, respirations nonlabored. Clear to auscultation bilaterally, no rales, rhonchi, wheezing. CARDIOVASCULAR: Regular rate and rhythm without murmurs, rubs, or gallops. Peripheral pulses 2+ and equal bilaterally. ABDOMINAL: Soft, nontender, nondistended, no hepatosplenomegaly. Normoactive BS. MUSCULOSKELETAL: Moves all extremities. Strength/ROM intact without gross deformities. Mild tenderness to lower spine. SKIN: Warm, dry, normal color. No rashes. NEURO: A&O X3. Speech clear. Cranial nerves II-XII intact. No ataxic movements. PSYCHIATRIC: Anxious Course Vital Signs Vital signs: Vital Signs Temperature 36.5 C 10/01/25 21:08 Pulse Rate 79 10/01/25 21:08 Respiratory Rate 16 10/01/25 21:08 Blood Pressure 149/101 H 10/01/25 21:08 Pulse Oximetry 100 10/01/25 21:08 Oxygen Delivery Room Air 10/01/25 21:08 Temperature 36.5 C 10/01/25 21:08 Pulse Rate 79 10/01/25 21:08 Respiratory Rate 16 10/01/25 21:08 Blood Pressure 149/101 H 10/01/25 21:08 Pulse Oximetry 100 10/01/25 21:08 Oxygen Delivery Room Air 10/01/25 21:08 MDM - Back Pain/Injury MDM Narrative Medical decision making narrative: Patient is a 50-year-old female who presents to the ER with complaints left flank pain, left-sided back pain that radiates up to her left neck and shoulder. Patient reports her pain started earlier today. She feels as though something is moving across her body. Patient voices multiple diagnostic concerns including blood clots and cancer because she said she had relatives who were diagnosed with these conditions. She denies any chest pain, abdominal pain, saddle anesthesia, recent fevers, urinary symptoms. Patient link s report on the way here she experienced numbness and tingling in her left hand. She endorses a history of cervicalgia, and migraine headaches. Labs Ordered: D-dimer, UA Imaging Ordered: CT abdomen pelvis, CT cervical spine, CT lumbar spine Medications Ordered: Toradol 60 mg IM, prednisone 40 mg p.o., Bactrim p.o. Results: Patient's CT scans indicate no acute abnormalities. Her UA indicates patient has a UTI. Patient's D-dimer indicates she does not have a blood clot. Diagnosis: Urinary tract infection Patient Education/Shared MDM: Results of lab work shared with patient. She endorses improvement of symptoms following medication administration. Patient strongly advised to maintain hydration status upon discharge and follow-up with her PCP to ensure her infection has resolved. She will be discharged home with a prescription for Bactrim and Cyclobenzaprine. Pt was advised to take Ibuprofen 800mg PO. Strict return precautions provided. Patient verbalized understanding and is in agreement with plan. Vital signs stable at time of discharge. All questions answered. Pt was reassured there was no concern for a blood clot. Differential Diagnosis Differential diagnosis: Likely lumbar radiculopathy, sciatica, pyelonephritis, discitis and other (Urinary tract infection) Lab Data Attestation: I reviewed the patient's lab results. Labs: Lab Results 10/01/25 Range/Units 22:36 D-Dimer 0.41 (<0.48) ug/mL Urine Color Yellow (Yellow) Urine Appearance Clear (Clear) Urine pH 6.0 (5.0-9.0) Ur Specific [place] 1.023 (1.001-1.035) Urine Protein Negative (Negative) mg/dL Urine Glucose (UA) Negative (Negative) mg/dL Urine Ketones Trace H (Negative) mg/dL Ur Blood (Man) Negative (Negative) Urine Nitrate Positive H (Negative) Urine Bilirubin Negative (Negative) Urine Urobilinogen 1.0 (<2.0) mg/dL Leukocyte Esterase Rfl Negative (Negative) RADHA/UL Urine RBC 0-2 (0-2) /hpf Urine WBC 6-10 H (0-3) /hpf Ur Squamous Epith Cells Occasional (Few) /hpf Urine Bacteria 4+ H /hpf Urine Casts 0-2 Imaging Data Attestation: I personally reviewed and interpreted this imaging study as follows: Radiologist's impression: Impressions Cervical Spine CT 10/01/25 22:18 IMPRESSION: No acute fracture or subluxation. All CT scans at this facility are performed using low dose modulation techniques as appropriate to perform exam including the following: automated exposure control; adjustment of the mA and/or kV according to patient size (this includes techniques or standardized protocols for targeted exams where does is matched to indication/reason for exam; i.e. extremities or head); use of iterative reconstruction technique). Abdomen/Pelvis CT 10/01/25 22:24 IMPRESSION: No acute abnormality is noted in the abdomen and pelvis. All CT scans at this facility are performed using low dose modulation techniques as appropriate to perform exam including the following: automated exposure control; use of iterative reconstruction technique; adjustment of the mA and/or kV according to patient size (this includes techniques or standardized protocols for targeted exams where dose is matched to indication/reason for exam). Thoracic/Lumbar Spine CT 10/01/25 22:29 IMPRESSION: No acute compression fracture or spondylolysis. All CT scans at this facility are performed using low dose modulation techniques as appropriate to perform exam including the following: automated exposure control; use of iterative reconstruction technique; adjustment of the mA and/or kV according to patient size (this includes techniques or standardized protocols for targeted exams where dose is matched to indication/reason for exam). Discharge Plan Discharge Clinical Impression: Cervicalgia, Urinary tract infection, Lumbar radiculopathy Patient Disposition: Home Condition: Stable Instructions: Antibiotic Form, Cervical Strain (ED), Urinary Tract Infection in Women (ED), Lumbar Radiculopathy (ED) Additional Instructions: Please return to the ER with any worsening symptoms. Follow-up with primary care provider regarding your enlarged thyroid. Take all medications as prescribed, including regularly scheduled medications. You may take ibuprofen 800 mg, in addition to the muscle relaxant, for pain relief. Patient Language: Malay Prescriptions: New sulfamethoxazole-trimethoprim [Bactrim DS] 800-160 mg tablet 1 tablet PO Q12H 5 Days Qty: 10 0RF cyclobenzaprine 5 mg tablet 5 mg PO TID PRN (Reason: muscle spasm) Qty: 30 0RF lidocaine 5 % adhesive patch,medicated 1 patch topical DAILY Qty: 30 0RF Rx Instructions: leave on most painful area for up to 12 hrs No Action cholecalciferol (vitamin D3) 1,250 mcg (50,000 unit) Capsule 1,250 mcg PO WEEKLY topiramate 25 mg Tablet 25 mg PO HS EstroGel 1.25 gram/actuation Gel In Metered-Dose Pump 1 pump TRANSDERMAL DAILY prednisone 50 mg tablet 50 mg PO DAILY Qty: 5 0RF benzonatate 200 mg capsule 200 mg PO TID PRN (Reason: cough) Qty: 30 0RF fluticasone propionate [Flonase Allergy Relief] 50 mcg/actuation spray,nicholas spension 1 spray intranasal DAILY Qty: 16 0RF Rx Instructions: administer into each nostril acetaminophen 500 mg tablet 1,000 mg PO TID PRN (Reason: quiana) 7 Days Qty: 42 0RF ibuprofen 800 mg tablet 800 mg PO TID PRN (Reason: pain) 7 Days Qty: 21 0RF methocarbamol 750 mg tablet 1,500 mg PO TID Qty: 42 0RF lidocaine 5 % adhesive patch,medicated 1 patch topical DAILY Qty: 15 0RF Rx Instructions: leave on most painful area for up to 12 hrs naproxen 500 mg tablet 500 mg PO BID PRN (Reason: pain) Qty: 20 0RF Follow-up/Referrals: Carolee,MANE Rhodes [Primary Care Provider, Unknown] Stand Alone Forms: Work/School Release IP Time of Disposition: 23:19
--- OUTSIDE RECORDS SUMMARY | 2025-10-01 21:57 | XMS_ITS | Clinical Summary ---
Author Organization [facility] Address [address] [place] [address] Care Team Providers Care Edge Banding Machine Offbearer Name Role Phone Anabel ENGEL MD, Mauri Unavailable [phone] Source Comments [facility],non-owned Affiliates and Associated Physician Practices is amultiple site organization consisting of ambulatory clinics and hospital sitesin [place], [place], [place] and [place]. This disclosure is being madepursuant to the Care Everywhere program and may not contain all information available regarding this patient. Last updated 18.[facility] [employer] Allergies No known active allergies Medications * Be aware that medications may not be up to date on this document. Alwaysverify current medications with the patient. Vitamin D, Ergocalciferol, 01180 units CAPS Take by mouth every 7 [...] Comments Blood Pressure 113/80 11/30/2022 2:00 PM CLERICAL MANAGER Pulse 80 11/30/2022 2:00 PM CLERICAL MANAGER Temperature 36.8 C (98.3 F) 11/30/2022 2:00 PM CLERICAL MANAGER Respiratory Rate - - Oxygen Saturation 99% 11/30/2022 2:00 PM CLERICAL MANAGER Inhaled Oxygen Concentration - - Weight 91.8 kg (202 lb 6.4 oz) 11/30/2022 2:00 P M CLERICAL MANAGER Height 167.6 cm (5' 6) 11/30/2022 2:00 PM CLERICAL MANAGER Body Mass Index 32.67 11/30/2022 2:00 PM CLERICAL MANAGER Plan of Treatment Health Maintenance Due Date [...] HEPATITIS B VACCINE (1 of 3 - + 3-dose series) 1993 PAP SMEAR 1995 SCREENING FOR DIABETES 11/30/2022 PNEUMOCOCCAL VACCINE 50+ (1 of 1 - PCV) 2024 ZOSTER VACCINE (1 of 2) 2024 DEPRESSION SCREENING 11/28/2024 COVID-19 VACCINE (1 - 2023-2 5 season) 2025 INFLUENZA VACCINE (#1) 2025 HIB VACCINE Aged [...] patient's age to complete this topic Insurance [facility] Care Teams Edge Banding Machine Offbearer Relationship Specialty [place] [address] [address]HU [address] [address] Orthopedic Surgery 05/21/13
--- OUTSIDE RECORDS SUMMARY | 2025-10-01 21:57 | XMS_ITS | Clinical Summary ---
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
--- NOTE | 2025-10-01 22:01 | ECG_ITS ---
Test Date: 2025-10-01 22:49:55 Measurements Intervals [place] Rate: 77 P: 65 IA: 158 QRS: 30 QRSD: 78 T: 13 QT: 350 QTc: 396 Interpretive Statements SINUS RHYTHM POSSIBLE LEFT ATRIAL ENLARGEMENT [-0.1mV P WAVE IN V1/V2] LOW QRS VOLTAGE IN PRECORDIAL LEADS [QRS DEFLECTION < 1.0 mV IN CHEST LEADS] NONSPECIFIC T-WAVE ABNORMALITY No previous ECG available for comparison Electronically Signed On 10-02-2025 06:38:10 SASH FINISHER by Radha Díaz M.D.
[2025-10-01] MEDS: KETOROLAC (*BKC) 60 MG/2 ML VIAL IM (22:40)
[2025-10-01 22:45] LABS: Add Urine Microscopic? YES; Appearance Urine Clear (Clear); Glucose Urine UA Negative (Negative); Leukocyte Esterase Ur Negative LEU/UL (Negative); Nitrate Urine Positive (Negative); Non Pathogenic Casts 0-2; Specific Grav Ur 1.023 (1.001-1.035)
[2025-10-01] MEDS: SULFAMETHOXAZOLE/TRIMETHOPRIM 800/160 MG DS TABLET 1 TAB PO (23:27)
[2025-10-01 23:38] VITALS: BP 133/78; PULSE 78; RESP 18; O2SAT 100
== END 2025-10-01 23:39 | disposition home or self-care (01) ==
PROVIDERS: Emergency Provider Registered Nurse; PCP Physician Assistant
DX: N39.0 Urinary tract infection, site not specified (principal); M54.16 Radiculopathy, lumbar region; M54.2 Cervicalgia; Z90.711 Acquired absence of uterus with remaining cervical stump; R94.31 Abnormal electrocardiogram [ECG] [EKG]
CPT/HCPCS: 36415; 72125; 72128; 72131; 74176; 81001; 85380; 87077; 87086; 87186; 93005; 96372; 99284; A9270; J1885; J7512